=== PATIENT | female | born 1975 | race Caucasian/White ===

== ENCOUNTER 2023-03-06 19:49 | Outpatient (CLI) | payer BC, SELFPAY ==
--- OUTSIDE RECORDS SUMMARY | 2023-03-06 19:52 | XMS_ITS | Continuity of Care Document ---
Author Name Unknown Organization [facility] Address [address] [address] [place] [address] Care Team Providers Care Pit Clerk Name Role Phone [place], [place] Unavailable Unav ailable Procedures Procedure Date Colono Advance Directives Directive Yes / No Effective Date File Name No Information Encounters Encounter Description Practice Location Reason(s) For Visit Diagnoses Date Provider Providers Copied on Encounter [facility], [address] [address], [place], [place], [id number], [place] [facility] No Information [facility]. [address] [address], [place], [place], [id number], . tel:[phone] Referring Provider: Iris Oliver MD, [address] [place] [address], [address]. tel:[phone] Family History Family Member Type Diagnosis Age At Onset No Information Payers Payer name Insurance type Covered republican ID Authoriza tion(s) [employer] [place] [id number] Social History Type Description Quantity Date Captured Comments Sex Female Smoking Status No Information Chief Complaint And Reason For Visit No Information Reason For Referral Reason For Referral No Information Plan Of Treatment Date Type Action Status No Information History Of Present Illness Encounter Date Complaint History Of Prese nt Illness No Information Functional Status Date Functional Assessmen t No Information Instructions Date Instruction Additional Infor mation No Information Assessments Type Assessment Date No Information Patient Care Teams Name Effective Dates (start - stop) Status Members No Information
--- OUTSIDE RECORDS SUMMARY | 2023-03-06 19:52 | XMS_ITS | Continuity of Care Document ---
Author Name Unknown Organization [facility] Address [address] [address] [place] [address] Phone Care Team Providers Care Medical I D Sales Name Role Phone Demetria Quintanilla CRNA Unavailable Unavailab le Allergies, Adverse Reactions, Alerts Substance Reaction Status Criticality No Known Allergies Active No Inform ation Medications Medication Instructions Dosage Effective Dates (start - stop) Status Comments lisinopril 10 mg tablet take 1 tablet by oral route every day 10 MG - Active Procedures Procedure Date Level Iv-surg Path Gross/micro 22 CRS Charges Advance Directives Directive Yes / No Effective Date File Name No Information Encounters Encounter Description Practice Location Reason(s) For Visit Diagnoses Date Provider Providers Copied on Encounter [facility], [address] [address], [place], [place], [id number], [place] tel:[phone] [facility] No Information 2 Socorro Augustin . [address], [place], [place], [id number] , [place]. tel:[phone] Referring Provider: Iris Oliver MD, [address], [place], [address]. tel:[phone] [facility], [address] [address], [place], [place], [id number], [place] tel:[phone] [facility] GI Symptoms or Concerns (chief complaint) Screening ColonoscopyColorect al polypsRectal polypEncounter for screening for malignant neoplasm of colon 2 Melody Simmons. [address], [place], [address], [place]. tel: [phone] Referring Provider: Referral Self. [facility], [address] [address], [place], [id number], [place] tel:[phone] [facility] No Information 2 Melody Simmons. 1980 [facility] [address], [place], [address], [place]. tel: [phone] Family History Family Member Type Diagnosis Age At Onset Mother Problem (finding) Cancer, kidney Mother Problem (finding) Cancer, gastric Mother Problem (finding) Alcoholism Father Problem (finding) Colon polyps Immunizations Vaccine Date Status Comments tetanus toxoid, reduced diphtheria toxoid, and acellular pertussis vaccine, adsorbed administered Note: [facility] bi-direct ional interface ; Source: Other Registry Payers Payer name Insurance type Covered constitution party ID Authoriza tion(s) [facility] [place] [id number] Social History Type Description Quantity Date Captured Comments Sex Female Smoking Status No Information Chief Complaint And Reason For Visit No Information Reason For Referral Reason For Referral No Information Plan Of Treatment Date Type Action Status No Information History Of Present Illness Encounter Date Complaint History Of Prese nt Illness GI Symptoms or Concerns Functional Status Date Functional Assessmen t No Information Instructions Date Instruction Additional Infor mation Colon Cancer Prevention Related to Screening Colonoscopy Colon Polyps Related to Scree anibal Colonoscopy Assessments Type Assessment Date No Information Patient Care Teams Name Effective Dates (start - stop) Status Members No Information
--- NOTE | 2023-03-14 08:57 | W.PM.SLEEP ---
Sleep Study Details Details Interpreting Provider: Clarisse Date of Sleep Study: 03/06/23 Sleep Study Details: STUDY TYPE:? Home unattended ? BMI:? 38.3 ORDERING PROVIDER:? Clarisse INDICATION:? Concerns about sleep apnea ? SLEEP SUMMARY:? 508 minutes monitored RESPIRATORY SUMMARY:? AHI 34.4, supine 43.8, left lateral 8.8, right lateral 18.6 Low oxygen 86 0.5% of study oxygen less than 90% Snoring 75.3% PERIODIC LIMB MOVEMENTS OF SLEEP:? Not recorded during home study CARDIAC:? Range 62-111, mean 79.4 IMPRESSION:? Severe obstructive sleep apnea with supine position dependency but apnea present in all positions. RECOMMENDATION: Initiate AutoSet CPAP at a pressure of 4-17. Weight loss is also recommended.
== END 2023-03-06 19:50 | disposition home or self-care (01) ==
LOC: SLEEP 19:50
PROVIDERS: PCP Physician Assistant Medical; Visit Provider Otolaryngology
DX: G47.33 Obstructive sleep apnea (adult) (pediatric) (principal)
CPT/HCPCS: 95806

== ENCOUNTER 2023-04-27 10:30 | Outpatient (CLI) | payer BC, SELFPAY | END 2023-04-27 10:31 | disposition home or self-care (01) | LOC: LKVREF 10:31 | PROVIDERS: PCP Physician Assistant Medical; Visit Provider Physician Assistant Medical | DX: I10 Essential (primary) hypertension (principal); R20.0 Anesthesia of skin | CPT/HCPCS: 82607 ==

== ENCOUNTER 2023-09-07 08:11 | Outpatient (CLI) | payer BC, SELFPAY ==
--- OUTSIDE RECORDS SUMMARY | 2023-09-13 18:05 | XMS_ITS | Encounter Summary ---
Author Name Unknown Organization [facility] Address [address] [place] [address] Care Team Providers Care Shade Classifier Name Role Phone Yulisa Contreras PA-C Primary Care Provider [facility]- Unav ailable Reason for Visit * Reason Comments Post op check TDR L5-S1 06/08/23 Encounter Details Date Type Department Care Team (Late st Contact Info) Description 06/29/2023 9:15 AM CDT Office Visit [facility]) [address] [place] [address] Marquez Rosenthal PA-C [address] [place], [place] [phone] Lumbar spine pain (Primary Dx) Social History Tobacco Use Types Packs/Day Years Used Date Smoking Tobacco: Former Cigarettes Smokeless Tobacco: Never Tobacco Cessation:Counseling Given: Not Answered Alcohol Use Standard Drinks/Week Comments Not Currently 0 (1 standard drink = 0.6 oz pur e alcohol) Sex and Gender Information Value Date Recorded Sex Assigned at Not on file Gender Identity Not on file Sexual Orientation Not on file documented as of this encounter Last Filed Vital Signs Vital Sign Reading Time Taken Comments Blood Pressure - - Pulse - - Temperature - - Respiratory Rate - - Oxygen Saturation - - Inhaled Oxygen Concentration - - Weight 102.1 kg (225 lb) 06/29/2023 9:11 AM CDT Height 165.1 cm (5' 5) 06/29/2023 9:11 AM CDT Body Mass Index 37.44 06/29/2023 9:11 AM CDT documented in this encounter Progress Notes * Marquez Roesnthal PA-C - 06/29/2023 9:15 AM CDT DATE OF SERVICE: 06/28/23 CHIEF COMPLAINT: low back pain HISTORY OF PRESENT ILLNESS: Carolina Garrido is a 48 y.o. female here today for evaluation approximately 3 weeks status post L5-S1 Total Disc Replacement (DOS: 06/08/23) performed by Dr. Vasyl Barrera. She is doing very well postoperatively. Her symptoms continue to improve.. Overall, symptoms continue to improve, and she is happy with the results thus far. Review of Systems: I have reviewed the last complete 10 point Review of Systems with the patient and any changes in findings are listed as part of today's visit. All other systems are negative. The patient's Past Medical/Surgical/Family/Social history have been reviewed and verified with the patient. The patient's current medications have been reviewed and verified with the patient. OBJECTIVE: @VSR@ GENERAL: Patient is alert and oriented x3 and appears to be in a mild amount of discomfort. EXTREMITIES: Symmetrical without obvious deformities. NEUROLOGICAL: Motor and sensory examinations are intact without deficit in the bilateral lower extremities. Motor and sensory examinations are intact without deficit in the bilateral upper extremities. INCISION: Site is clean, dry, and intact. IMAGING: The patient did have imaging prior to this appointment which I reviewed myself and discussed the findings with her. 06/29/23- XR Lumbar Spine- [facility] The impression is: The instrumentation is in appropriate placement without any evidence of hardwarebreakdown or loosening. The interbody grafts are in good position and there is significant bone graft material throughout for fusion process. ASSESSMENT 1.3 weeks status post L5-S1 Total Disc Replacement (DOS: 06/08/23) PLAN: 1. I had a long talk with Carolina Garrido today regarding the diagnosis and treatment recommendations. We talked about activity restrictions and modifications. We also discussed medication management and wound care measures going forward. 2. Due to her current condition and response to treatment thus far, I recommend Carolina continue to increase activities as she can tolerate. Continue with her brace. We will keep her off work for least another month. She will follow up 4 weeks At the end of our visit Carolina Garrido understands the current diagnosis and future treatment plan, and questions were answered satisfactorily. I also asked if there are any other questions or concerns otherwise, that she please call back to the office; understanding of this was expressed. REMOTE TELESCRIBE ATTESTATION: ICarole am serving as a remote telescribe to document services personally performed by Marquez Rosenthal PA-C, and have constructed this note based upon discussion of the services providedand the practitioner's statements to me. I attest that through the duration of documentation services, I remained in a HIPAA compliant location. All documentation has been reviewed by the aforementioned provider. PROVIDER ATTESTATION: Marquez Zabala PA-C attest the above information is a true representation of the patient encounter. The information in this document, created by the medical telescribe for me, accurately reflects the services I personally performed and the decisions made by me. I have reviewed this document and have made the final edit(s). Authenticated by Marquez Rosenthal PA-C on 06/29/23 at 8:57 AM. 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 06/14/2023 06/14/2023 06/14/2023 2 Hydromorphone 4 Mg Tablet 27.00 5 Ja [facility] [id number] Gra (2990) 0/0 108.00 M[place] 06/10/2023 06/10/2023 06/10/2023 2 Hydromorphone 4 Mg Tablet 27.00 5 Ma [facility] [id number] Gra (6070) 0/0 108.00 [place] 05/24/2023 05/24/2023 05/26/2023 2 Oxycodone Hcl (Ir) 5 Mg Tablet 30.00 4 Sa Lyb [id number] Gra (2990)0/0 56.25 [place] 05/03/2023 04/27/2023 05/04/2023 1 Oxycodone Hcl (Ir) 5 Mg Tablet 30.00 7 Sa Lyb [id number] Wal (6514)0/0 32.14 [place] Name Address [facility] Zipcode Phone Yulisa Contreras [address] [facility] [address] Jarett Fernandez [address] [facility] [address] [facility] [address] Marquez Rosenthal [address] [facility] [address] [facility] [address] Name Address [facility] Zipcode Phone trinket [phone] [facility] [id number] [facility] [phone] [facility] [phone] As a proxy delegate, I have queried the [place] and/or [place] Prescription Monitoring Program for this patient and provided the clinician with the above information for the preceding 12 months. Monica Kaye LPN * Mikael Rivera - 06/29/2023 9:15 AM CDT Surgery - TDR L5-S1 Provider - Dr. Barrera Date - 06/08/23 Symptoms - numbness in abdomen to back to mid thigh when laying on back or left side. Images/Location - 2VL 06/29/23 - Ray[facility] Changes in health hx since last visit - none Current Pain Med's - Tylenol, Oxycodone occasionally Suture/Staple Removal - Sutures in front, provider to determine if ok to remove Pain Score - 10 Any major falls in the last year - no Did the fall(s) result in injury - no Is the patient at risk for falls - no Is a Disability or Workability Form needed - yes Current RTW date - na RT.R Sheng 06/29/2023 9:14 AM documented in this encounter Plan of Treatment Not on file documented as of this encounter Visit Diagnoses Diagnosis Lumbar spine pain- Primary Lumbago documented in this encounter Care Teams Shade Classifier Relationship Specialty Start Date End Date Yulisa Contreras PA-C [address] [place] [address] PCP - General Physician Vegetable Preparer 01/20/23 [facility]- [address] [place] [address] PCP - Primary Care Clinic 05/29/23 documented as of this encounter
--- OUTSIDE RECORDS SUMMARY | 2023-09-13 18:05 | XMS_ITS | Clinical Summary ---
Author Name Unknown Organization [facility] Address [address] [place] [address] Care Team Providers Care Software Installer Name Role Phone Yulisa Contreras PA-C Primary Care Provider [facility]- Unav ailable Allergies No known active allergies Medications Medication Sig Dispensed Refills Start Date End Date Status valACYclovir (VALTREX) 1 gram oral tablet TAKE 2 TABLETS TWICE A DAY FOR 1 DAY AT FIRST SIGN OF ONSET 0 10/20/2022 Active hydroCHLOROthiazide (HYDRODIURIL) 12.5 mg oral tablet TAKE 1 TABLET (12.5 MG) BY MOUTH DAILY 0 11/26/2021 Active melatonin 10 mg oral Tab Take 5 mg by mouth at bedtime as needed. 0 Active Walker Two Wheeled (Rolling) Walker Height: Ht Readings from Last 1 Encounters: 06/08/23 : 5' 5 (1.651 m) Weight:Wt Readings from Last 1 Encounters: 06/08/23 : 114.6 kg (252 lb 10.4 oz) 1 each 0 06/10/2023 Active methocarbamoL (ROBAXIN) 750 mg oral tablet Take 1-2 tablets (750-1,500 mg) by mouth every 6 (six) hours as needed (muscle spasms). 60 tablet 0 06/10/2023 Active HYDROmorphone (DILAUDID) 4 mg oral tablet 1-1.5 (4-6mg) tabs every 4 hrs prn max 9/day 27 tablet 0 06/14/2023 Active lisinopriL-hydrochlo rothiazide 10-12.5 mg oral tablet Take 1 tablet by mouth once daily. for blood pressure 0 06/10/2023 Active methylPREDNISolone (MEDROL DOSPAK) 4 mg oral dospak 0 04/27/2023 Active oxyCODONE, immediate release, (ROXICODONE) 5 mg oral tablet TAKE 1-2 TABLETS BY MOUTH EVERY 6 HOURS NEEDED FOR SEVERE PAIN 0 05/24/2023 Active Active Problems Problem Noted Date Diagnosed Date Lumbar radiculopathy 06/08/2023 Sacroiliitis 06/08/2023 Primary hypertension 06/08/2023 Basal cell carcinoma, eyelid, right 07/22/2021 Overview: Added automatically from request for surgery [id number] (spontaneous vaginal delivery) 09/27/2011 Encounters Date Type Department Care Team Description 08/07/2023 Order-Scan [facility] [address] [place] [phone] Reported, Patient 08/04/2023 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 OCEANOLOGY TEACHER Office Visit [facility] ([facility]) [address] [facility] [address] [place] [phone] Vincent Michel PA-C Postoperative state (Primary Dx) 08/04/2023 Travel 06/29/2023 9:15 AM CDT Office Visit [facility] ([facility]) [address] [place] [phone] Marquez Rosenthal PA-C Lumbar spine pain (Primary Dx) 06/29/2023 Order-Scan [facility] [address] [place] [phone] Reported, Patient 06/29/2023 Travel from Last 3 Months Family History Relation Status Comments Father Mother Social History Tobacco Use Types Packs/Day Years Used Date Smoking Tobacco: Former Cigarettes Smokeless Tobacco: Never Tobacco Cessation:Counseling Given: Not Answered Alcohol Use Standard Drinks/Week Comments Not Currently 0 (1 standard drink = 0.6 oz pur e alcohol) Sex and Gender Information Value Date Recorded Sex Assigned at Not on file Gender Identity Not on file Sexual Orientation Not on file Last Filed Vital Signs Vital Sign Reading Time Taken Comments Blood Pressure 127/75 06/10/2023 12:08 PM CDT Pulse 95 06/10/2023 12:08 PM CDT Temperature 36.6 ??C (97.9 ??F) 06/10/2023 12:08 PM C DT Respiratory Rate 16 06/10/2023 12:08 PM CDT Oxygen Saturation 96% 06/10/2023 12:08 PM CDT Inhaled Oxygen Concentration - - Weight 102.1 kg (225 lb) 06/29/2023 9:11 AM CDT Height 165.1 cm (5' 5) 06/29/2023 9:11 AM CDT Body Mass Index 37.44 06/29/2023 9:11 AM CDT Plan of Treatment Health Maintenance Due Date Last Done Comments Hepatitis C Screening 1977 Lipid Screening 1977 Mammogram Screening 1977 Pap Smear 1977 COVID-19 Vaccine (#1) 1977 Anxiety Screening (OPAL-2) 1978 Depression Assessment (PHQ-2) 1978 Influenza Vaccine (#1) 2023 Diabetes Screening 06/09/2026 06/09/2023 Adult Tetanus Booster 03/21/2029 03/21/2019 Colonoscopy 08/05/2032 08/05/2022 Pneumococcal <65 Aged Out No longer e ligible based on patient's age to complete this topic Medical Devices Implanted Type Area Supervisor Putty [employer] [place] Device Identifier Shelf Expiration Date Model / Serial / Lot Activ L Pe-Inlay 8.5mm Implanted:Qty: 1 on 06/08/2023 by Vasyl Barrera MD at [facility] N/A: Spine Lumbar [employer] 06/28/2026 [id number] / / [id number] Procedures Procedure Name Priority Date/Time Associated Diagnosis Comments SCANNED RADIOLOGY Routine 08/04/2023 9:19 AM OCEANOLOGY TEACHER SCANNED RADIOLOGY Routine 06/29/2023 11:36 AM CDT from Last 3 Months Results * SCANNED RADIOLOGY (08/04/2023 9:19 AM OCEANOLOGY TEACHER) Only the most recent of2 resultswithin the time period is included. Anatomical Region Laterality Modality Other Patient Reported XRAY ORDERABLE from Last 3 Months Advance Directives For more information, please contact: [phone] Latest Code Status on File Code Status Date Activated Date Inactivated Comments Full Code 06/08/2023 12:45 PM 06/10/2023 6:13 PM Question Answer Comments How was code status determined? Patient Code Status History Code Status Date Activated Date Inactivated Comments Full Code 06/08/2023 5:36 AM 06/08/2023 10:04 AM Question Answer Comments How was code status determined? Previous [facility] Care Teams Software Installer Relationship Specialty Start Date End Date Yulisa Contreras PA-C [address] [place] [address] PCP - General Physician It Consulting Director 01/20/23 [facility] [address] [place] [address] PCP - Primary Care Clinic 05/29/23
--- OUTSIDE RECORDS SUMMARY | 2023-09-13 18:05 | XMS_ITS | Encounter Summary ---
Author Name Unknown Organization [facility] Address [address] [place] [address] Care Team Providers Care Outreach Representative Name Role Phone Yulisa Contreras PA-C Primary Care Provider [facility]- Unav ailable Reason for Referral * (Routine) - Open Specialty Diagnoses / Procedures Referred By Contac t Referred To Contact Diagnoses Lumbar radiculopathy Procedures Discharge Equipment: Jarett Muñoz PA-C [address] [place] [address] Referral ID Status Reason Start Date Expiration Date Visits Re quested Visits Authorized [id number] Open 06/10/2023 1 1 * (Routine) - Open Specialty Diagnoses / Procedures Referred By Contac t Referred To Contact Procedures Diet: Level 7 Regular Jarett Fernandez PA-C [address] [place] [address] Referral ID Status Reason Start Date Expiration Date Visits Re quested Visits Authorized [id number] Open 06/10/2023 1 1 * (Routine) - Open Specialty Diagnoses / Procedures Referred By Contac t Referred To Contact Procedures Wound care Jarett Fernandez PA-C [address] [place] [address] Referral ID Status Reason Start Date Expiration Date Visits Re quested Visits Authorized [id number] Open 06/10/2023 1 1 * (Routine) - Open Specialty Diagnoses / Procedures Referred By Contac t Referred To Contact Procedures Discharge Instructions Jarett Fernandez PA-C [address] [place] [address] Referral ID Status Reason Start Date Expiration Date Visits Re quested Visits Authorized [id number] Open 06/10/2023 1 1 * (Routine) - Open Specialty Diagnoses / Procedures Referred By Contac t Referred To Contact Jarett Fernandez PA-C [address] [place] [address] Vasyl Barrera MD [address] [place] [address] Referral ID Status Reason Start Date Expiration Date Visits Re quested Visits Authorized [id number] Open 06/10/2023 1 1 Question Answer Specify time frame for follow up? 2 Weeks Instructions to follow-up provider none Comments Return to clinic in 2 days for staple removal * (Routine) - Open Specialty Diagnoses / Procedures Referred By Contac t Referred To Contact Procedures Temperature >101 (38.3 degrees Celsius) Jaertt Fernandez PA-C [address] [place] [address] Referral ID Status Reason Start Date Expiration Date Visits Re quested Visits Authorized [id number] Open 06/10/2023 1 1 * (Routine) - Open Specialty Diagnoses / Procedures Referred By Contac t Referred To Contact Procedures Severe uncontrolled pain Jarett Fernandez PA-C [address] [place] [address] Referral ID Status Reason Start Date Expiration Date Visits Re quested Visits Authorized [id number] Open 06/10/2023 1 1 * (Routine) - Open Specialty Diagnoses / Procedures Referred By Contac t Referred To Contact Procedures Persistent nausea or vomiting Jarett Fernandez PA-C [address] [place] [address] Referral ID Status Reason Start Date Expiration Date Visits Re quested Visits Authorized [id number] Open 06/10/2023 1 1 * (Routine) - Open Specialty Diagnoses / Procedures Referred By Contac t Referred To Contact Procedures Pain not relieved by medication Jarett Fernandez PA-C [address] [place] [address] Referral ID Status Reason Start Date Expiration Date Visits Re quested Visits Authorized [id number] Open 06/10/2023 1 1 * (Routine) - Open Specialty Diagnoses / Procedures Referred By Contac t Referred To Contact Procedures Any questions or concerns Jarett Fernandez PA-C [address] [place] [address] Referral ID Status Reason Start Date Expiration Date Visits Re quested Visits Authorized [id number] Open 06/10/2023 1 1 * (Routine) - Open Specialty Diagnoses / Procedures Referred By Contac t Referred To Contact Procedures Wound care Orville Vickers MD [address] [place] [address] Referral ID Status Reason Start Date Expiration Date Visits Re quested Visits Authorized [id number] Open 06/09/2023 1 1 * (Routine) - Open Specialty Diagnoses / Procedures Referred By Contac [place] [address] [place] [address] Yulisa Contreras PA-C [address] [place] [address] Referral ID Status Reason Start Date Expiration Date Visits Re quested Visits Authorized [id number] Open 06/09/2023 1 1 Question Answer Specify time frame for follow up? 1 Week Instructions to follow-up provider See comments. Comments Posthospital follow-up for L5-S1 interbody fusion. Patient follow with surgery as an outpatient. 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] Procedures LUMBAR SPINE FUSION,ANTER NEIL* NC TOTAL DISC ARTHRP ANT SINGLE INTERSPACE LUMBAR ARTIFICIAL DISC REPLACEMENT L5-S1 EXPOSURE: LUMBAR Referral ID Status Reason Start Date Expiration Date Visits Re quested Visits Authorized [id number] 1 1 Encounter Details Date Type Department Care Team (Latest Contact Info) Description 06/08/2023 5:29 AM CDT - 06/10/2023 11:30 AM CDT Hospital Encounter A7 [address] [facility] [address] Vasyl Barrera MD [address] [facility] [address] [place] [address] Lumbar radiculopathy Discharge Disposition: Returning Home/Self Care Social History Tobacco Use Types Packs/Day Years Used Date Smoking Tobacco: Never Smokeless Tobacco: Never Alcohol Use Standard Drinks/Week Comments Not Currently 0 (1 standard drink = 0.6 oz pur e alcohol) Sex and Gender Information Value Date Recorded Sex Assigned at Not on file Gender Identity Not on file Sexual Orientation Not on file documented as of this encounter Last Filed Vital Signs Vital Sign Reading Time Taken Comments Blood Pressure 127/75 06/10/2023 11:00 AM CDT Pulse 95 06/10/2023 11:00 AM CDT Temperature 36.6 ??C (97.9 ??F) 06/10/2023 1 0:44 AM CDT Respiratory Rate 16 06/10/2023 10:4 4 AM CDT Oxygen Saturation 96% 06/10/2023 10: 44 AM CDT Inhaled Oxygen Concentration - - Weight 114.6 kg (252 lb 10.4 oz) 2022 11:31 AM CDT Height 165.1 cm (5' 5) 06/08/2023 11:3 1 AM CDT Body Mass Index 42.04 06/08/2023 11:31 AM CDT documented in this encounter Discharge Summaries * Jarett Fernandez PA-C - 06/10/2023 9:22 AM CDT HOSPITAL DISCHARGE SUMMARY Patient Name: Carolina Garrido Date of : 1975? Age: 48 y.o.? ? Primary Physician: Yulisa Contreras PA-C? ? Admission Date: 06/08/2023? Discharge Date: 06/10/2022 She will be discharged from [facility] to home. PRINCIPAL DIAGNOSIS CAUSING ADMISSION: Displacement of lumbar intervertebral disc without myelopathy [M51.26]? DISCHARGE MEDICATIONS Please call [phone] with any insurance coverage issues, including limited days' supply rejections. FOLLOW-UP: She should return to clinic in 2 weeks or as scheduled. Additional followup: None Special instructions: No lifting over 10 pounds. Limit bending and twisting. Dressing off tomorrow.Ok to shower tomorrow. Pat incision dry when done. Brace: If given a brace it is to be worn at all times when out of bed. Brace can be removed when laying in bed and for hygiene purposes. BRIEF HOSPITAL COURSE: This 48 y.o.? female was [facility] Procedure(s): ARTIFICIAL DISC REPLACEMENT L5-S1 - Wound Class: Clean (I) - Incision Closure: Deep and SuperficialLayers Bilateral - EXPOSURE: LUMBAR - Wound Class: Clean (I) - Incision Closure: Deep and Superficial Layers. The patient had a stable post operative course. Standard prophylactic antibiotics were administerd and the patient received DVT prophylaxis per service protocol. The patient's pain was initially controlled on intravenous pain medications and then weaned to oral medications prior to discharge. The patients pain was well controlled and the patient had met all physical therapy goals prior to discharge. PROCEDURES PERFORMED DURING HOSPITALIZATION: Procedure(s): ARTIFICIAL DISC REPLACEMENT L5-S1 - Wound Class: Clean (I) - Incision Closure: Deep and SuperficialLayers Bilateral - EXPOSURE: LUMBAR - Wound Class: Clean (I) - Incision Closure: Deep and Superficial Layers on 06/08/2023 COMPLICATIONS IN HOSPITAL: None IMPORTANT PENDING TEST RESULTS: None PERTINENT FINDINGS/RESULTS AT DISCHARGE: None DISCHARGE DIAGNOSES: Lumbar radiculopathy Jarett Fernandez PA-C 9:23 AM [facility] Office: [phone] documented in this encounter Medications at Time of Discharge Medication Sig Dispensed Refills Start Date End Date hydroCHLOROthiazide (HYDRODIURIL) 12.5 mg oral tablet TAKE 1 TABLET (12.5 MG) BY MOUTH DAILY 0 11/26/2021 lisinopriL-hydrochloroth iazide 10-12.5 mg oral tablet Take 1 tablet by mouth once daily. for blood pressure 0 06/10/2023 melatonin 10 mg oral Tab Take 5 mg by mouth at bedtime as needed. 0 methocarbamoL (ROBAXIN) 750 mg oral tablet Take 1-2 tablets (750-1,500 mg) by mouth every 6 (six) hours as needed (muscle spasms). 60 tablet 0 06/10/2023 methylPREDNISolone (MEDROL DOSPAK) 4 mg oral dospak 0 04/27/2023 oxyCODONE, immediate release, (ROXICODONE) 5 mg oral tablet TAKE 1-2 TABLETS BY MOUTH EVERY 6 HOURS NEEDED FOR SEVERE PAIN 0 05/24/2023 valACYclovir (VALTREX) 1 gram oral tablet TAKE 2 TABLETS TWICE A DAY FOR 1 DAY AT FIRST SIGN OF ONSET 0 10/20/2022 Walker Two Wheeled (Rolling) Walker Height: Ht Readings from Last 1 Encounters: 06/08/23 : 5' 5 (1.651 m) Weight:Wt Readings from Last 1 Encounters: 06/08/23 : 114.6 kg (252 lb 10.4 oz) 1 each 0 06/10/2023 documented as of this encounter Progress Notes * Roselia Barber RN - 06/10/2023 12:06 PM CDT Carolina Riveravaneusebio [id number] P: Discharge A: Discharged via wheelchair to home at 1130 escorted by nurse I: Discharge information and arrangements included: review of written discharge instructions, review of purpose and side effects of new medication, walker sent with the patient/family., belongings list completed. R:Patient expressed understanding of information. present for D/C. VSS. Prescriptions filled at outside pharmacy. All belongings returned. * Jarett Fernandez PA-C - 06/10/2023 9:14 AM CDT [facility] progress Note S: Patient is feeling much better this morning. She notes she is gotten very good pain control overnight. She is not noting any nausea, vomiting or headaches. She does admit to flatus. She has not had a bowel movement yet. She is urinating without a Gonzalez catheter. She denies any lower extremity pain or paresthesias. She is hoping to discharge home today. O: BP 117/62 Pulse 94 Temp 98.2 ??F (36.8 ??C) Resp 18 Ht 5' 5 (1.651 m) Wt 114.6 kg (252 lb 10.4 oz) LMP 06/06/2023 (Exact Date) SpO2 95% No BMI 42.04 kg/m?? Alert and oriented x3. Moves all extremities x4. Motor and sensory examinations are intact without deficit to the bilateral lower extremities. Dressing shows mild serosanguineous drainage. Abdomen issoft and nontender to palpation. A: Status post L5-S1 TDR P: Patient is doing much better this morning. I discontinued IV pain medications and she will be upand work with therapies this morning. Assuming good pain control she should discharge midday today. Jarett Fernandez PA-C 06/10/2023, 9:14 AM * Luis M Roa MD - 06/10/2023 7:41 AM CDT Images from the original note were not included. HOSPITALIST DIVISION PROGRESS NOTE CHIEF COMPLAINT: Planned artificial disc replacement at L5-S1 and L5-S1 interbody fusion SUBJECTIVE - No acute overnight events - Eating well and improved pain control - Slept betting - Denies any fevers, chills, CP, SOB, N/V, dizziness, or confusion - updated at bedside OBJECTIVE BP 127/75 Pulse 95 Temp 97.9 ??F (36.6 ??C) Resp 16 Ht 5' 5 (1.651 m) Wt 114.6 kg (252 lb 10.4 oz) LMP 06/06/2023 (Exact Date) SpO2 96% No BMI 42.04 kg/m?? Intake/Output Summary (Last 24 hours) at 06/10/2023 1220 Last data filed at 06/10/2023 1045 Gross per 24 hour Intake 480 ml Output 0 ml Net 480 ml GENERAL APPEARANCE: She is awake, alert and in no acute distress. HEENT: Head - Normocephalic, atraumatic. Eyes - Normal lids and conjuntivae, PERRLA, EOMs intact. Oropharynx - Oral mucosa and pharynx normal, moist mucous membranes. NECK: Supple with no adenopathy. RESPIRATORY: Lungs clear to auscultation bilaterally. CARDIOVASCULAR: Normal S1, normal S2, regular rhythm, without murmur. GASTROINTESTINAL: Midline surgical dressing in place over the abdomen, clean and dry. Normal bowel sounds. HEME/LYMPH/IMMUNOLOGIC: No palpable lymphadenopathy, no unusual bleeding or bruising. SKIN: Intact, warm, dry. No rashes or lesions. No mottling. NEUROLOGIC: Alert and oriented, moves all extremities. Normal movement and sensation in the bilateral lower extremities. EXTREMITIES: Distal Pulses are palpable, no edema. No results found for this or any previous visit (from the past 24 hour(s)). Additional comments: I reviewed the patient's new clinical lab test results. I reviewed the patient's medications. I reviewed the patient's other test results. ASSESSMENT Principal Problem: Lumbar radiculopathy Active Problems: Sacroiliitis (HCC) Primary hypertension Surgical Incision Midline;Lower Abdomen (Active) Incision Date/Incision Time: 06/08/2306 Type: Incision Orientation: Midline;Lower Location: Abdomen Comments: This is a 48-year-old woman with a past medical history significant for lumbar radiculopathy who was admitted for planned L5-S1 artificial disc replacement and L5-S1 interbody fusion. PLAN Lumbar radiculopathy s/p L5-S1 artificial disc replacement and interbody fusion The patient is a history of lumbar radiculopathy that failed conservative management and after discussion with surgical teams, agreed to L5-S1 artificial disc replacement and interbody fusion. L5-S1 artificial disc replacement and interbody fusion was completed without complication. 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 Plan: - Continue to hold home hydrochlorothiazide in the setting of normal blood pressure - As needed IV hydralazine for sustained SBP >180 CAMILA CPAP has been prescribed to the patient patient but she has not yet started using it. CPAP was offered during this admission with the patient declined. Plan: - Continue to monitor Insomnia INVENTORY ASSOCIATE AND DRIVER melatonin. Plan: - Continue home melatonin CODE STATUS: Full Code DVT prophylaxis: Per primary team GI prophylaxis: None Dermatology Nurse Type Used: None DISPOSITION: Anticipated date of discharge per primary team, possibly today (06/10). Luis M Roa MD * Diana Beasley RN - 06/10/2023 4:05 AM CDT Med-Surg Care Progression Note Type: Shift to shift summary Length of stay: 2 days Code Status: Full Code Primary Problem: POD#2 L5-S1 Artificial dis replacement Summary: Difficult pain management at the start of shift despite use of PO Dilaudid. Neurosurgery paged and added PRN IV Toradol, increased PO Dilaudid 2- 6mg, and modified PRN IV Dilaudid admin orders. PRN IV Dilaudid 0.5mg given x1. Gave the pt abdominal binder for while in bed for comfort and support, pt reports significant decrease in incisional/abdominal pain with use of binder. F- Feeding & Fluids: Tolerating regular diet, thin liquids A- Analgesic & Anticoagulation: Comfort Goal: Numeric, Verbal, Faces: 0 - None Analgesic PO Dilaudid 6mg, Tylenol, Robaxin, Vistaril, Ice packs and using abdominal binder while in bed for comfort. Anticoagulation/DVT prevention & plan SCDs S- Skin: Elmer Subcategory Concern(s): Sensory Perception: Slightly Limited (Numbness/tingling bilateral extremities) Sensory Interventions: Pain control Moisture: Rarely Moist Activity: Walks Occasionally Activity Interventions: Reposition every 2 hours Nutrition: Adequate Nutrition Interventions: Calorie intake Mobility: Slightly Limited Mobility Interventions: Turning every 2 hrs Friction and Shear: No Apparent Problem Total Elmer Score: 19: Aquacel dressing on abdomen CDI. No other skin concerns. Frequently changing positions in bed and up to chair. T- Telemetry: Rhythm: Sinus Rhythm Ectopy: None No tele E- Emotional & Neuro: Participating in cares Neuro Alert and Oriented R- Respiratory: On room air H- Head OUT of Bed & Activity: Activate Fall Alert? (Enter 1 or 0): (not recorded) Ambulating Ax1/SBA with walker. Therapies following Early mobility Phases 1-4: Phase 4: Ambulation U- Urologic/bowel: No data recorded Voiding WNL in bathroom, passing gas but no BM yet. G- Glycemic Control: Not applicable T- Treatment: Pain control, Mobility, PT/OT I- Invasive Devices: PIV x1 D- Discharge: Possibly home today with family support if pain managed * Laura Sifuentes RN - 06/09/2023 10:36 PM CDT Med-Surg Care Progression Note Type: Shift to shift summary [id number] Length of stay: 1 days Code Status: Full Code Primary Problem: Disc Replacement L5- S 1 Summary: Pt did not discharge today - working on pain control, switched oxy to PO dilaudid F- Feeding & Fluids: Tolerating regular diet / thin liquids A- Analgesic & Anticoagulation: Comfort Goal: Numeric, Verbal, Faces: 0 - None Analgesic Sched Tylenol & Robaxin, changed oxy to dilaudid to try for better pain control. PRN vistaril. Ice packs applied. Anticoagulation/DVT prevention & plan SCDs S- Skin: Elmer Subcategory Concern(s): Sensory Perception: No Impairment Moisture: Rarely Moist Activity: Chairfast Activity Interventions: Reposition every 2 hours Nutrition: Adequate Nutrition Interventions: Calorie intake Mobility: Slightly Limited Mobility Interventions: Turning every 2 hrs Friction and Shear: No Apparent Problem Total Elmer Score: 19: Aquacel C/D/I T- Telemetry: Rhythm: Sinus Rhythm Ectopy: None No tele E- Emotional & Neuro: Participating in cares Neuro Alert and Oriented R- Respiratory: On room air, Per RT pt declined CPAP H- Head OUT of Bed & Activity: Activate Fall Alert? (Enter 1 or 0): (not recorded) A1/SBA with walker and brace. Progressive mobility Phases 5-7: (Ambulation) U- Urologic/bowel: No data recorded Voiding - WNL, states she is passing gas no BM this shift. G- Glycemic Control: Not applicable T- Treatment: pain management, PT /OT, labs I- Invasive Devices: PIV X 1 D- Discharge: TBD - home tomorrow * Roselia Barber RN - 06/09/2023 3:19 PM CDT Med-Surg Care Progression Note Type: Shift to shift summary [id number] Length of stay: 1 days Code Status: Full Code Primary Problem: Disc Replacement L5- S 1 Summary: Pt did not discharge today - working on pain control, switched oxy to PO dilaudid F- Feeding & Fluids: Tolerating regular diet / thin liquids A- Analgesic & Anticoagulation: Comfort Goal: Numeric, Verbal, Faces: 0 - None Analgesic Sched Tylenol & Robaxin, changed oxy to dilaudid to try for better pain control. Anticoagulation/DVT prevention & plan SCDs S- Skin: Elmer Subcategory Concern(s): Sensory Perception: No Impairment Moisture: Rarely Moist Activity: Chairfast Activity Interventions: Reposition every 2 hours Nutrition: Adequate Nutrition Interventions: Calorie intake Mobility: Slightly Limited Mobility Interventions: Turning every 2 hrs Friction and Shear: No Apparent Problem Total Elmer Score: 19: Aquacel C/D/ I T- Telemetry: Rhythm: Sinus Rhythm Ectopy: None No tele E- Emotional & Neuro: Participating in cares Neuro Alert and Oriented R- Respiratory: On room air, Per RT pt declined CPAP H- Head OUT of Bed & Activity: Activate Fall Alert? (Enter 1 or 0): (not recorded) Ax1 with walker and brace.Progressive mobility Phases 5-7: (Ambulation) U- Urologic/bowel: No data recorded VWNL, states she is passing gas no BM this shift. G- Glycemic Control: Not applicable T- Treatment: pain management, PT /OT, labs I- Invasive Devices: PIV X 2, Gonzalez D- Discharge: TBD- home tomorrow * Ashlee Felipe - 06/09/2023 11:48 AM CDT [facility] Rx: Marquez Rosenthal PA-C/LSO Dx: Displacement of lumbar intervertebral disc without myelopathy [M51.26] Procedure(s), Vasyl Barrera MD: ARTIFICIAL DISC REPLACEMENT L5-S1 POD#1 Pt was seen in her [facility] room A787-01 this AM for f/u of her [place] LSO, which was fit immediate post-op 06/08. This AM pt presents in room chair w/LSO on & appearing tight. Pt reporting discomfort over anterior incision. This AM I increased the LSO 1 size to alleviate pressure over incision & ease donning. Pt reported drastic improvement in comfort w/LSO adjusted. We then discussed function, wear (per Dr. Barrera), care, maintenance & precautions. This same info was provided in written format, along w/contact info. Practiced don/doff. All questions answered. Pt aware to voice any concerns w/LSO to care team during hospital stay- [place] to address. Pt alsounderstands to contact [facility] directly w/any questions or concerns after d/c from [facility]. Will continue to follow peripherally until d/c. Please call our office w/any questions or concerns in the mean time. Thank you! Ashlee Felipe [employer] * Mai Watson, ELENI - 06/09/2023 10:00 AM CDT [facility] POD #1 - Anterior spine exposure for Lumbar 5-Sacral 1 interbody fusion (EBL 50) Dr. Vickers / Dr. Barrera - 06/08/2023 BP 122/61 Pulse 93 Temp 97.5 ??F (36.4 ??C) Resp 16 Ht 5' 5 (1.651 m) Wt 114.6 kg (252 lb 10.4 oz) LMP 06/06/2023 (Exact Date) SpO2 97% No BMI 42.04 kg/m?? Intake/Output Summary (Last 24 hours) at 06/09/2023 1041 Last data filed at 06/09/2023 0850 Gross per 24 hour Intake 580 ml Output 2875 ml Net -2295 ml Labs: Latest Reference Range & Units 06/09/23 07:29 06/09/23 07:30 WBC 4.3 - 10.8 K/uL 10.4 RBC 4.20 - 5.40 M/uL 3.89 (L) HEMOGLOBIN 12.0 - 16.0 gm/dL 11.6 (L) PLATELET COUNT 150 - 400 K/UL 266 SODIUM 136 - 145 mmol/L 142 POTASSIUM 3.4 - 5.1 mmol/L 3.8 CHLORIDE 98 - 108 mmol/L 107 CARBON DIOXIDE 20 - 31 mmol/L 29 ANION GAP 0.0 - 15.0 mmol/L 6.0 GLUCOSE 74 - 106 mg/dL 103 BUN (UREA NITRO) 9 - 23 mg/dL 8 (L) CREATININE 0.55 - 1.02 mg/dL 0.59 EST GFR (CKD-EPI) >60.00 mL/min/1.73m2 >60.00 CALCIUM, SERUM 8.7 - 10.4 mg/dL 8.9 MAGNESIUM 1.6 - 2.6 mg/dL 1.9 Patient seen in room with at beside. She is alert and oriented x 3. Pain is manageable withTylenol, vistaril, oxycodone and robaxin. Abdominal incision with Aquacel dressing present and is clean, dry and intact. Site is soft, flat and without palpable hematoma. She has + bowel sounds, + flatus, negative BM. Tolerating PO intake without nausea. + CMS to BLE. Palpable DP/PT pulses. Updated Dr. Vickers. Plan: - Dispo per Neurosurg and [facility] Lexii Watson RN Nurse Clinician [facility] Pager [phone] Main Radiology [phone] Available Monday - Monday 8am to 5pm * Olya Cisneros PA-C - 06/09/2023 8:41 AM CDT NEUROSURGERY PROGRESS NOTE ASSESSMENT & PLAN: POD#1 Status Post: Procedure(s): ARTIFICIAL DISC REPLACEMENT L5-S1 (N/A) EXPOSURE: LUMBAR (Bilateral) (DOS: 06/08/23) -Pain management: Oxycodone and Tylenol -Gonzalez: can be pulled this AM -IS 3-4 times per hour while awake. -Activity w/ OT/PT. -Encourage getting out of bed to chair at least 3-4x per day -Brace: lumbar sacral brace, to wear when OOB. Ok to remove for hygiene purposes and wound cares. -Diet: May advance diet as bowel function improves. -DC planning: Length of stay: 1-2 days. Discharge on: 06/09/23 or 06/10/23 pending pain control and patient comfort. -Disposition: home with . SUBJECTIVE: Carolina Garrido is a 48 year old female who is POD1 from the above stated procedure. Patientstates her pain has not been well controlled as she feels she has built a tolerance to oxycodone asshe's been taking it daily for months. Discussed changing pain med vs optimizing adjunctive medications. Patient in favor of optimizing adjuncts. Patient endorses ongoing numbness/tingling in hip region that she had preoperatively, states it is unchanged. Patient was up and walking last night, stating she felt steady on her feet. Discussed patient concerns and answered all questions. Patient and both deny any further questions at this time. Discussed we will try for better pain control before discharge. Ambulation is going well, will see PT later today. + flatus, no BM yet. Denies new extremity pain or weakness, nausea/vomiting, abdominal pain. Discussed the case with RN on the floor. Went over the plan for the day and the rest of the patient's admission. Very much appreciate the collaboration. Diet: Level 7 Regular Level 0: Thin Liquids OBJECTIVE: Vitals: 06/08/23 1700 06/08/23 1800 06/09/23 0011 06/09/23 0413 BP: 120/69 112/66 105/60 (!) 117/59 Pulse: 89 85 81 82 Resp: 18 18 Temp: 98 ??F (36.7 ??C) SpO2: 99% 97% 94% 99% Weight: Height: Body mass index is 42.04 kg/m??. BP Readings from Last 5 Encounters: 06/09/23 (!) 117/59 Wt Readings from Last 5 Encounters: 06/08/23 114.6 kg (252 lb 10.4 oz) 01/23/23 103 kg (227 lb) Hgb: HEMOGLOBIN Date Value Ref Range Status 06/09/2023 11.6 (L) 12.0 - 16.0 gm/dL Final 06/08/2023 12.8 12.0 - 16.0 gm/dL Final Patient is awake, alert and oriented x3. Motor of bilateral LE: 5/5 strength plantar flexion, dorsiflexion, knee flexion, knee extension, hip flexion Sensory of bilateral LE: Normal sensation to light touch. Pulses: Dorsal pedal pulses 2+ bilaterally. Wound is dry and dressed. Olya Betancourt PA-C .................... 06/09/2023 8:41 AM * Luis M Roa MD - 06/09/2023 8:05 AM CDT Images from the original note were not included. HOSPITALIST DIVISION PROGRESS NOTE CHIEF COMPLAINT: Planned artificial disc replacement at L5-S1 and L5-S1 interbody fusion SUBJECTIVE - Some issues with pain overnight, did not sleep well - Pain improved now this AM, rates it as 3-4 in intensity - No issues with PO intake - Some numbness in her hip area when lying down that has since resolved - Passing gas, no BM yet - Denies any fevers, chills, CP, SOB, N/V, dizziness, or confusion OBJECTIVE BP 122/61 Pulse 93 Temp 97.5 ??F (36.4 ??C) Resp 16 Ht 5' 5 (1.651 m) Wt 114.6 kg (252 lb 10.4 oz) LMP 06/06/2023 (Exact Date) SpO2 97% No BMI 42.04 kg/m?? Intake/Output Summary (Last 24 hours) at 06/09/2023 0953 Last data filed at 06/09/2023 0850 Gross per 24 hour Intake 680 ml Output 2875 ml Net -2195 ml GENERAL APPEARANCE: She is awake, alert and in no acute distress. HEENT: Head - Normocephalic, atraumatic. Eyes - Normal lids and conjuntivae, PERRLA, EOMs intact. Oropharynx - Oral mucosa and pharynx normal, moist mucous membranes. NECK: Supple with no adenopathy. RESPIRATORY: Lungs clear to auscultation bilaterally. CARDIOVASCULAR: Normal S1, normal S2, regular rhythm, without murmur. GASTROINTESTINAL: Midline surgical dressing in place over the abdomen, clean and dry. Normal bowel sounds. HEME/LYMPH/IMMUNOLOGIC: No palpable lymphadenopathy, no unusual bleeding or bruising. SKIN: Intact, warm, dry. No rashes or lesions. No mottling. NEUROLOGIC: Alert and oriented, moves all extremities. Normal movement and sensation in the bilateral lower extremities. EXTREMITIES: Distal Pulses are palpable, no edema. Results for orders placed or performed during the hospital encounter of 06/08/23 (from the past 24 hour(s)) Hemoglobin Result Value Ref Range HEMOGLOBIN 12.8 12.0 - 16.0 gm/dL Basic Metabolic Profile Magnesium Result Value Ref Range SODIUM 142 136 - 145 mmol/L POTASSIUM 3.8 3.4 - 5.1 mmol/L CHLORIDE 107 98 - 108 mmol/L CARBON DIOXIDE 29 20 - 31 mmol/L BUN (UREA NITRO) 8 (L) 9 - 23 mg/dL CREATININE 0.59 0.55 - 1.02 mg/dL EST GFR (CKD-EPI) >60.00 >60.00 mL/min/1.73m2 GLUCOSE 103 74 - 106 mg/dL CALCIUM, SERUM 8.9 8.7 - 10.4 mg/dL ANION GAP 6.0 0.0 - 15.0 mmol/L Magnesium 1.9 1.6 - 2.6 mg/dL CBC (Hgb,Hct,WBC,RBC,Platelet) Result Value Ref Range WBC 10.4 4.3 - 10.8 K/uL RBC 3.89 (L) 4.20 - 5.40 M/uL HEMOGLOBIN 11.6 (L) 12.0 - 16.0 gm/dL HEMATOCRIT 34.9 (L) 36.0 - 48.0 % MCV 90 80 - 100 fL MCH 30 27 - 33 pg MCHC 33 33 - 36 gm/dL RDW 12.2 11.5 - 14.5 % PLATELET COUNT 266 150 - 400 K/UL MPV 9.9 6.5 - 12 fL Additional comments: I reviewed the patient's new clinical lab test results. I reviewed the patient's medications. I reviewed the patient's other test results. ASSESSMENT Principal Problem: Lumbar radiculopathy Active Problems: Sacroiliitis (HCC) Primary hypertension Surgical Incision Midline;Lower Abdomen (Active) Incision Date/Incision Time: 06/08/23805 Type: Incision Orientation: Midline;Lower Location: Abdomen Comments: This is a 48-year-old woman with a past medical history significant for lumbar radiculopathy who was admitted for planned L5-S1 artificial disc replacement and L5-S1 interbody fusion. PLAN Lumbar radiculopathy s/p L5-S1 artificial disc replacement and interbody fusion The patient is a history of lumbar radiculopathy that failed conservative management and after discussion with surgical teams, agreed to L5-S1 artificial disc replacement and interbody fusion. L5-S1 artificial disc replacement and interbody fusion was completed without complication. 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 Plan: - Continue to hold home hydrochlorothiazide in the setting of normal blood pressure - As needed IV hydralazine for sustained SBP >180 CAMILA CPAP has been prescribed to the patient patient but she has not yet started using it. CPAP was offered during this admission with the patient declined. Plan: - Continue to monitor Insomnia INVENTORY ASSOCIATE AND DRIVER melatonin. Plan: - Continue home melatonin CODE STATUS: Full Code DVT prophylaxis: Per primary team GI prophylaxis: None Dermatology Nurse Type Used: None DISPOSITION: Anticipated date of discharge per primary team. Luis M Roa MD * Dawn Nieves RN - 06/09/2023 6:07 AM CDT Med-Surg Care Progression Note Type: Shift to shift summary Length of stay: 1 days Code Status: Full Code Primary Problem: Disc Replacement L5- S 1 Summary: pt stable, pt ambulates with brace and walker, PRN given x1 this shift. Family in room with pt. F- Feeding & Fluids: Tolerating regular diet / thin liquids A- Analgesic & Anticoagulation: Comfort Goal: Numeric, Verbal, Faces: 0 - None Analgesic PRN oxycodone and Vistaril x1 Schedule Tylenol x1 Anticoagulation/DVT prevention & plan SCDs S- Skin: Elmer Subcategory Concern(s): Sensory Perception: No Impairment Moisture: Rarely Moist Activity: Chairfast Activity Interventions: Reposition every 2 hours Nutrition: Adequate Nutrition Interventions: Calorie intake Mobility: Slightly Limited Mobility Interventions: Turning every 2 hrs Friction and Shear: No Apparent Problem Total Elmer Score: 19: no skin noted, Aquacel C/D/ I T- Telemetry: Rhythm: Sinus Rhythm Ectopy: None No tele E- Emotional & Neuro: Participating in cares Neuro Alert and Oriented R- Respiratory: On room air, Per RT pt declined CPAP H- Head OUT of Bed & Activity: Activate Fall Alert? (Enter 1 or 0): (not recorded) A-1 with walker and brace.Progressive mobility Phases 5-7: (not recorded) U- Urologic/bowel: No data recorded Voiding gonzalez in place , pt states she passing gas no BM this shift. G- Glycemic Control: Not applicable T- Treatment: pain management, PT /OT, labs I- Invasive Devices: PIV X 2, Gonzalez D- Discharge: TBD * Storm Carlson RN - 06/08/2023 10:49 PM CDT Med-Surg Care Progression Note Type: Shift to shift summary Length of stay: 0 days Code Status: Full Code Primary Problem: Disc Replacement 5- S 1 Summary: post op vitals completed, and stable, pt ambulating well and pain managed with prn oxycodone and iv dilaudid. F- Feeding & Fluids: Tolerating regular diet / thin liquids A- Analgesic & Anticoagulation: Comfort Goal: Numeric, Verbal, Faces: 0 - None Analgesic PRN oxycodone, IV dilaudid Anticoagulation/DVT prevention & plan SCDs S- Skin: Elmer Subcategory Concern(s): Sensory Perception: No Impairment Moisture: Rarely Moist Activity: Chairfast Activity Interventions: Reposition every 2 hours Nutrition: Adequate Nutrition Interventions: Calorie intake Mobility: Slightly Limited Mobility Interventions: Turning every 2 hrs Friction and Shear: No Apparent Problem Total Elmer Score: 19: no skin noted, Aquacel C/D/ I T- Telemetry: Rhythm: Sinus Rhythm Ectopy: None No tele E- Emotional & Neuro: Participating in cares Neuro Alert and Oriented R- Respiratory: On room air H- Head OUT of Bed & Activity: Activate Fall Alert? (Enter 1 or 0): (not recorded) Ambulating in room and hallway Progressive mobility Phases 5-7: (not recorded) U- Urologic/bowel: No data recorded Voiding gonzalez in place G- Glycemic Control: Not applicable T- Treatment: pain management, PT /OT, labs I- Invasive Devices: PIV X 2, Gonzalez D- Discharge: TBD * Princess Leon RT - 06/08/2023 5:38 PM CDT Declined cpap. Orders d/c per protocol. * Roselia Yi RN - 06/08/2023 1:35 PM CDT Med-Surg Care Progression Note Type: Admission summary Length of stay: 0 days Code Status: Full Code Primary Problem: Disc replacement L5-S1 Summary: F- Feeding & Fluids: Tolerating Regular diet and thin liquids. IVF d/c'ed A- Analgesic & Anticoagulation: Comfort Goal: Numeric, Verbal, Faces: 6 - Severe Analgesic C/o pain 8/10 to abdomen PRN oxy, robaxin and vistaril Anticoagulation/DVT prevention & plan SCDs S- Skin: Elmer Subcategory Concern(s): Sensory Perception: No Impairment Moisture: Rarely Moist Activity: Bedfast Activity Interventions: Reposition every 2 hours Nutrition: Adequate Nutrition Interventions: N/A Mobility: Slightly Limited Mobility Interventions: Turning every 2 hrs Friction and Shear: No Apparent Problem Total Elmer Score: 18: No skin issues noted. Aquacel to Abdomen C/D/I T- Telemetry: Rhythm: Sinus Rhythm Ectopy: None No tele E- Emotional & Neuro: Participating in cares Neuro Alert and Oriented, drowsy R- Respiratory: 3L NC following surgery, wean as able H- Head OUT of Bed & Activity: Activate Fall Alert? (Enter 1 or 0): (not recorded) Not OOB thisshift U- Urologic/bowel: No data recorded Gonzalez in place. 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 Pt was sized w/LSO & it was left bedside to be transferred to floor w/pt for use later today if needed. No education provided at this time. Will f/u on 06/09/2023 to ensure pt's comfort & provide education on LSO. Please call our office w/any questions or concerns in the mean time. Thank you! Ashlee Felipe [employer]ER * Roselia Yi RN - 06/08/2023 11:37 AM CDT P. Admission A. Condition on Admit: alert. Patient/Family Concerns: Patient expressed concern about pain relief . I. Initial Interventions included: notified MD of patient arrival. Orientation to Unit: Patient oriented to how to call for help, name of assigned animal care attendant, initialphysician orders, hourly rounding procedures, unit and plan of care. R. Patient expressed understanding of information.. Roselia Yi RN * Javier Lepe - 06/08/2023 7:05 AM CDT Summary: Infusion Pharmacist visit at this patient's request to provide pre-surgery support and prayer. Rev. Chaplain Schrader M.Div. CEC 06/08/2023 0700 am documented in this encounter Consult Notes * Zuly Mack, OT - 06/09/2023 4:18 PM CDT Occupational Therapy Acute Evaluation Patient Name: Carolina Garrido Today's Date: 06/09/2023 Admission Date: 06/08/2023 ASSESSMENT/PLAN/RECOMMENDATIONS Assessment/Plan/Recommendations OT Assessment Results: Impaired ADLs, Impaired IADLs, Impaired functional mobility, Impaired endurance Strengths: Age, Good family support, Supportive living environment, Prior level of function, Patient cooperation, Patient motivation, Ambulatory Limitations/Discharge Barriers: Pain, Limited mobility, Needs assist with ADL Rehab Potential: Excellent OT Frequency: No further acute OT needed Discharge Support Recommendations: Requires increased assist/support Requires assist with the following ADLs: LE dressing, Shower/bathing Requires assist with the following IADLs: Meal prep, Homemaking, Driving Post Acute Therapy Needs: No OT needs OT Plan Comments: Pt is a 48 y.o. female admitted for elective 48 yo female s/p L5-S1 artificial disc replacement and interbody fusion. Pt lives with in 2 level home with all needs met on main level. Indep with ADLs and most IADLs at baseline (family assist with heavy homemaking, shopping, yardwork tasks at baseline). 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 Pt presents with significant pain, spinal precautions limiting performance of LB ADLs. Provided instruction with adaptive equipment for LB dressing/bathing. pt demonstrates good carryover. Completed bed mobility with Min A provided by spouse. LB dressing completed with very min assist. g/h completed with SBA standing sinkside., toileting with CGA. Anticipate pt will be able to discharge back to home once medically stable will support of spouse for LB dressing/bathing and increased support with homemaking tasks. UE strength functional, no further acute OT needs, signing off, please reorder if new needs arise. INPATIENT REHAB FACILITY CANDIDATE Inpatient Rehabilitation Facility Candidate Appropriate for Acute Inpatient Rehab?: No GENERAL General Visit Type: Initial Evaluation Diagnosis: elective artificial disc replacement at L5-S1 and L5-S1 interbody fusion; DOS 06/08 Admission/Diagnosis Details: The patient is a history of lumbar radiculopathy that failed conservative management and after discussion with surgical teams, agreed to L5-S1 artificial disc replacementand interbody fusion. Pertinent Past Medical History: HTN, lumbar radiculopathy Patient Seen In: Room Family/Caregiver Present: No Hearing: Within Functional Limits Subjective (Comment): presented in bed, agreeable to OT tx session PRECAUTIONS Precautions Devices/Equipment Required: Lumbar Spine Orthosis Precautions: Spinal Therapy Vitals BP: 154/89 HR: 95 SpO2: 93% Oxygen Delivery Device: Room Air SAFETY INTERVENTIONS Safety Interventions Fall Risk?: Yes Safety Interventions/Patient Disposition: Standard interventions, In bed, Call light in hand, All needs within reach, Other ( present) PAIN Patient complained of 7/10 pain in low back HOME LIVING Home Setup Type of Home: House Lives With: Spouse (teen-adult children at home) Home Layout: Two level Home Entry: Stairs to enter without rails Number of stairs: 2 Stairs within Home: Able to live on main level Comment: walk in shower, laundry, bathroom, and primary bedroom on main level. 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 Could hardly walk a block COGNITIVE STATUS Cognitive Status Cognition Comments: Oriented x 4 VISION Vision - Basic Assessment Current Vision: Wears glasses all the time UPPER EXTREMITY ASSESSMENTS ROM RUE ROM: Functional LUE ROM : Functional Strength RUE Strength: Functional LUE Strength: Functional AM-PAC Outcome Measure 6 Clicks Daily ADL AM-PAC Putting on and taking off regular lower body clothing?: A Little Bathing (including washing, rinsing, drying)?: A Little Toileting, which includes using toilet, bedpan or urinal?: A Little Putting on and taking off regular upper body clothing?: None Taking care of personal grooming such as brushing teeth?: None Eating meals?: None AM-PAC Daily Activity Raw Score: 21 AM-[facility] Daily Activity CMS 0-100% Score: 32.79 AM-[facility] Daily Activity t-Scale Score: 44.27 The following scores are predictive of discharge disposition during acute hospitalization: Home= 20.1; Home with Home Health= 17.9; TCU=14; IRF=13.6; LTACH=11.5 Please refer to narrative for assessment of functional performance and discharge recommendations asscores may not always reflect mobility, cognitive aspects of performance or instrumental activitiesof daily living (IADLs) CURRENT ADL/IADL STATUS Current ADL Status Equipment Provided: Tucking Machine Operator, Sock aid, Long-handled shoe horn, Long-handled sponge, Dressing stick Grooming Assistance: SBA UE Dressing Assistance: SBA LE Dressing Assistance: Minimal Toileting Assistance: CGA ADL Comments: Education provided on adaptive equipment for LB bathing, dressing. reviewed A/E recommendations to ease bed mobility/toileting FUNCTIONAL MOBILITY Bed Mobility Supine to Sit: Minimum assistance Sit to Supine: Contact guard Dangling: SBA Functional Transfers Sit to Stand: Contact guard, SBA Stand to Sit: Contact guard Functional Mobility Functional Mobility: ambulated ADL distances with RW and CGA EXERCISE Functional Activity Functional Activity: Education on spinal precautions, bed mobility, safe RW use during ADLs ACTIVITY TOLERANCE Activity Tolerance Endurance: Participates 20-30 min of therapy session PATIENT EDUCATION Patient Education Patient Education: Plan of care, Role of OT, Recommendations based upon assessments, Discharge recommendations, Adaptive equipment, Compensatory techniques for ADLs TIME SPENT WITH PATIENT OT Timed Code Treatment Minutes OT Evaluation: 15 OT Self-Care/Home Management: 20 OT Therapeutic Activity: 9 OT Total Minutes Spent with Patient Total Minutes Spent With Patient (billable): 44 Minutes GOALS Time Frame Short term goals target date: 06/09/23 Patient/Family Participation in Goal Setting Patient participated in goal setting: Yes Patient goal preference: to go home STG Grooming Patient will complete daily grooming and light hygiene task: with supervision Outcome: Goal Met STG LE Dressing Patient will dress lower body donning/doffing: underwear, pants, socks, shoes, with minimal assist,with adaptive equipment/strategies, with compensatory strategies Outcome: Goal Met STG Toileting Patient will complete toileting: with contact guard Outcome: Goal Met * Erika Juares, PT - 06/09/2023 11:53 AM CDT Acute Physical Therapy Evaluation Patient Name: Carolina Garrido Today's Date: 06/09/2023 Admission Date: 06/08/2023 Precautions Precautions Devices/Equipment Required: Lumbar Spine Orthosis Precautions: Spinal Assessment PT Assessment/Recommendations Assessment: Pt is a 48 yo female s/p L5-S1 artificial disc replacement and interbody fusion. Pt lives with in 2 level home with all needs met on main level. Reports being independent with mobility at baseline, though reports progressive decline in functional mobility prior to surgery d/t severity of pain. Pt presenting with severe SI and incisional pain limiting independence with functional mobility post-op, though denies any radicular symptoms. Pt currently requiring SBA with bed mobility, transfers, and amulation using RW. Mobility is slow and effortful, but pt is able to mobilize under her own power. Educated on spinal precautions and log roll technique. Recommend initial SBA with mobility and use of RW upon d/c. Strengths: Age, Good family support, Patient motivation, Ambulatory, Good strength, Strong discharge support Limitations/Discharge Barriers: Pain Endurance: Participates 20-30 min of therapy session Prognosis: Good Recommendations for Nursing: Mobilize assist of 1 with gait belt, Ambulate 2- 3x/day, Up to chair 2-3x/day, Use of assistive device with mobility Type of Assistive Device: RW Discharge Support Recommendations: Is safe to discharge to previous living situation with prior level of assist/support Mobility Needs at Discharge: Supervision during mobility Post Acute Therapy Needs: No PT needs (may eventually benefit from follow up with OPPT) Equipment Recommended for Discharge: Rolling walker, Shower chair Plan PT Frequency: No further acute PT needed Encounter Details General Diagnosis: elective artificial disc replacement at L5-S1 and L5-S1 interbody fusion; DOS 06/08 Admission/Diagnosis Details: The patient is a history of lumbar radiculopathy that failed conservative management and after discussion with surgical teams, agreed to L5-S1 artificial disc replacementand interbody fusion. Pertinent Past Medical History: HTN, lumbar radiculopathy Patient Seen In: Room Family/Caregiver Present: Yes Who was present?: Subjective Comments: Pt sitting up on EOB upon arrival, agreeable to PT Subjective/Social History Home Setup Type of Home: House Lives With: Spouse Home Layout: Two level Home Entry: Stairs to enter without rails Number of stairs: 2 Stairs within Home: Able to live on main level Comment: walk in shower, laundry, bathroom, and primary bedroom on main level. States will be home with her for 27/03 supervision/support over next few weeks Prior Level of Functional Mobility Independent with: All Mobility Mobility Equipment Used: None DME owned: None History of falls: None Comment: Reports having increased difficulty with mobility prior to surgery d/t severity of pain. Could hardly walk a block Pain Patient complained of 9/10 low back pain along incision and B SI joints Objective Cognitive Status Orientation Level: Oriented X4 Arousal/Alertness: Appropriate responses to stimuli Following Commands: Follows multistep commands Safety Judgment: Intact Motor Planning/Processing: Within Functional Limits Therapy Vitals BP: 116/67 HR: 99 ROM RLE: WFL LLE: WFL Strength Overall RLE Strength: WFL, Impaired due to pain Overall LLE Strength: WFL, Impaired due to pain Comments: mildly impaired functional LE strength d/t pain Sensation Light Touch: Intact in the RLE, Intact in the LLE Sensation Comments: denies any numbness/tingling in B LEs; reports radicular symptoms that were present prior to surgery seem to have resolved Patient is functioning as follows: Bed Mobility Roll Left: Supervision Supine to Sit: Standby assist Sit to Supine: Standby assist, Contact guard assist/steadying assist Dangling: Supervision, Independent Scooting: Supervision Setup/Equipment: HOB flat, Bed rail Cueing Provided: Verbal Bed Mobility Comments: Cues for log roll technique with pt demonstrating good technique with practice. Effortful/limited by pain Transfers Transfer Type: Sit to/from Stand, Stand Pivot Sit to/from Stand Level of Assist: Standby assist Assistive Device: Rolling walker Comments: Cues for safety with hand positioning. Steady upon standing. Denies lightheadedness Stand Pivot Stand Pivot Level of Assistance: Standby assist Stand Pivot Assistive Device: Rolling walker Comments: slow but steady using RW Ambulation Ambulation Assessment: Bout 1 Bout 1 Surface: Level ivelisse Complexity: Forward stepping Distance (ft): 300 feet Assistive Device: Rolling walker Level of Assist: Standby Assist Quality of Gait: slow joanna, short step lengths, reciprocal pattern, steady using RW, light-moderate UE support on RW Comments: educated pt on importance of ambulating post-op, avoiding lying/sitting for more than 1 hour at a time Stairs/Curb Negotiation Stairs/Curb Negotiation: Bout 1 Bout 1 Comments: Did not perform d/t severity of pain and limited stairs at home. Educated pt on recommendation for holding onto for support to navigate 2 steps to enter home. Step to pattern. [facility] AM-PAC 6-Clicks Turning over in bed (including adjusting bed clothes, sheets, and blankets): Minimum/contact guard/standby assist Sitting down and standing up from a chair with arms: Minimum/contact guard/standby assist Moving from lying on back to sitting on the side of bed: Minimum/contact guard/standby assist Moving to and from a bed to a chair: Minimum/contact guard/standby assist Walk in hospital room?: Minimum/contact guard/standby assist Climbing 3-5 steps with a railing: Minimum/contact guard/standby assist AM-PAC 6 Clicks: Mobility Total Score: 18 The following scores are predictive of discharge disposition during acute hospitalization: Home= 20or greater; Home with Home Health=18; Continued skilled care at appropriate facility= 14 or less. Treatment Therapeutic Activity Therapeutic Activity: Activity 1 Activity 1: Educated pt on spinal precautions and log roll technique. Education on safety with mobility. See above sections for details. Educated on donning/doffing of LSO. Education/Safety Education Provided Patient Education: Role of PT, Bed mobility, Transfers, Ambulation, Safe use of assistive device, Post-surgical precautions, Safety with mobility, Plan of care, Discharge recommendations Family Education: Safe mobility techniques, Discharge recommendations Safety Interventions Fall Risk?: Yes (though likely low if using RW) Safety Interventions/Patient Disposition: Standard interventions, In chair, Call light in hand, Allneeds within reach Comment: in room Goals Time Frame Goals target date: 06/09/23 Patient/family participation in goal setting Patient/family participation in goal setting: Yes Patient goal preference: wants to return home and eventually have less pain, improved strength, andhoping to lose some weight Patient will Participate in PT Evaluation Patient will participate in PT evaluation in order to provide safe discharge mobility recommendations: Goal met TIME SPENT WITH PATIENT PT Time Spent with Patient for Evaluation PT Evaluation: 20 PT Timed Code Treatment Minutes (outside of evaluation) PT Therapeutic Activity: 10 PT Timed Code Treatment Minutes PT Total Billable Minutes: 30 Minutes * Nati Smith PA-C - 06/08/2023 12:29 PM CDT Images from the original note were not included. HOSPITALIST DIVISION CONSULT NOTE Patient Name: Carolina Garrido Address: [address] [place] [address] Age:48 y.o. Sex: female Admission Date/Time: 06/08/2023 5:29 AM Requesting Physician: Dr. Barrera [facility] Attending Physician: Vasyl Barrera MD I was asked to see this patient at the request of Dr. Barrera for evaluation of medication management following artificial dis replacement L5-S1. HPI: Carolina Garrido is a 48 y.o. female with PMH of sacroiliitis, L5-S1 disc displacement, who presents for scheduled L5-S1 disc replacement surgery. H&P performed 06/01. Patient states she is in a lot of pain following surgery. She has sensation in her BLE. No chest pain, shortness of breath, nausea, vomiting, diarrhea. REVIEW OF SYSTEMS: A comprehensive review of systems was negative except for items noted in the HPI/Subjective. PAST MEDICAL HISTORY Past Medical History: Diagnosis Date Cancer (HCC) basal carcinoma Chronic pain HTN (hypertension) Sleep apnea CPAP PAST SURGICAL HISTORY Past Surgical History: Procedure Laterality Date COCHLEAR DEVICE ear tubes x7 IMPLANT PROCEDURE bladder sling and IUD TUMOR ABLATION removal of pinky tumor VASCULAR SURGERY PROCEDURE UN* varicose veins ALLERGIES/SENSITIVITIES No Known Allergies FAMILY HISTORY No family history on file. SOCIAL HISTORY Social History Socioeconomic History Marital status: Spouse name: Not on file Number of children: Not on file Years of education: Not on file Highest education level: Not on file Occupational History Not on file Tobacco Use Smoking status: Never Smokeless tobacco: Never Substance and Sexual Activity Alcohol use: Not Currently Drug use: Never Sexual activity: Not on file Other Topics Concern Not on file Social History Narrative Not on file Social Determinants of Health Financial Resource Strain: Not on file Food Insecurity: Not on file Transportation Needs: Not on file Physical Activity: Not on file Stress: Not on file Social Connections: Not on file Intimate Partner Violence: Not on file Housing Stability: Not on file CURRENT MEDS Current Facility-Administered Medications: acetaminophen (TYLENOL) tablet 1,000 mg, 1,000 mg, oral, Q6H (NS) OR acetaminophen (TYLENOL) rectal suppository 650 mg, 650 mg, Rectal, Q6H (NS), Marquez Rosenthal PA-C alum-mag hydroxide-simethicone (MAALOX PLUS) suspension 15-30 mL, 15-30 mL, oral, Q6H PRN, Marquez Rosenthal PA-C ceFAZolin (Ancef) 2 g in sodium chloride 0.9 % 100 mL IV piggyback, 2 g, Intravenous, Q8H (NS), Marquez Rosenthal PA-C CELL SAVER: heparin 30,000 units in sodium chloride 0.9% (conc: 30 units/mL), , Per Cell Saver, ONCE, Vasyl Barrera MD D50W IV syringe 25-50 mL, 25-50 mL, Intravenous, PRN, Marquez Rosenthal PA-C D50W IV syringe 25-50 mL, 25-50 mL, Intravenous, PRN, Marquez Rosenthal PA-C docusate sodium (COLACE) capsule 100 mg, 100 mg, oral, Twice Daily, Marquez Rosenthal PA-C, 100 mg at 06/08/23 1147 glucagon, human recombinant (Glucagen) injection (conc: 1 mg/mL) 1 mg, 1 mg, IntraMUSCULAR, Q 15 MINS PRN, Marquez Rosenthal PA-C HYDROmorphone (DILAUDID) syringe 0.2-0.4 mg, 0.2-0.4 mg, Intravenous, Q4H PRN, Marquez Rosenthal PA-C hydrOXYzine pamoate (Vistaril) capsule 50 mg, 50 mg, oral, Q3H PRN, Marquez Rosenthal PA-C methocarbamoL (ROBAXIN) tablet 750 mg, 750 mg, oral, QID PRN, Marquez Rosenthal PA- C, 750 mg at 06/08/23 1147 naloxone (NARCAN) injection 0.1 mg, 0.1 mg, Intravenous, Q1 MINUTE PRN, Marquez Rosenthal PA-C ondansetron (ZOFRAN) injection 4 mg, 4 mg, Intravenous, Q8H PRN OR ondansetron (ZOFRAN) disintegrating tablet 4 mg, 4 mg, oral, Q8H PRN, Marquez Rosenthal PA-C oxyCODONE (immediate release) (ROXICODONE) tablet 5-10 mg, 5-10 mg, oral, Q4H PRN, Marquez Rosenthal PA-C PHYSICAL EXAM: Vitals: 06/08/23 1131 06/08/23 1145 06/08/23 1200 06/08/23 1215 BP: 116/63 116/60 105/61 (!) 110/56 Pulse: 85 83 83 83 Resp: 13 Temp: 98 ??F (36.7 ??C) SpO2: 98% 96% 94% 96% Weight: 114.6 kg (252 lb 10.4 oz) Height: 5' 5 (1.651 m) O2 Delivery Source: Nasal Cannula Temp (24hrs), Av ??F (36.7 ??C), Min:97.8 ??F (36.6 ??C), Max:98 ??F (36.7 ??C) Wt Readings from Last 2 Encounters: 06/08/23 114.6 kg (252 lb 10.4 oz) 01/23/23 103 kg (227 lb) Body mass index is 42.04 kg/m??. General: Well-developed, well-nourished. NAD. Falling asleep during interview. HENT: Normocephalic, atraumatic. Eyes non-icteric, conjunctive non-injected. Nose: patent nares. Mouth: moist mucous membranes. Neck: Full ROM. Trachea appears midline. Chest/Cardiovascular: Regular rate, regular rhythm. No audible murmurs. Pulmonary: No increased work of breathing. Speaking in full sentences. No wheezes, rhonchi, or rales. Abdomen: Soft. No tenderness or rebound. No distention. Extremities: Normal ROM of all four extremities. No obvious deformities. No LE edema or calf pain. Skin: No visible rashes on exposed skin. No pallor or jaundice. Neuro: CN II-XII grossly intact. Awake and answering questions appropriately. LABS: Results for orders placed or performed during the hospital encounter of 06/08/23 (from the past 24 hour(s)) hCG Urine Result Value Ref Range HCG URINE Negative Negative POCT Glucose Meter Result Value Ref Range GLUCOSE WB METER 101 (H) 60 - 100 mg/dL EKG: Pre-op EKG is reassuring without ischemic changes or arrhythmia. ADDITIONAL COMMENTS: I reviewed the patient's new clinical lab test results. I reviewed the patient's medications. I reviewed the patient's new imaging test results. I discussed the patient's care with Dr. Roa. Old records reviewed. CONSULTATION ASSESSMENT AND PLAN/RECOMMENDATIONS: Principal Problem: Lumbar radiculopathy Active Problems: Sacroiliitis (HCC) Primary hypertension Carolina Garrido is a 48 y.o. female with PMH of sacroiliitis, L5-S1 disc displacement, who presents for scheduled L5-S1 disc replacement surgery. S/p artifical disc replacement L5-S1 on 06/08 Sacroiliitis Patient is s/p disc replacement surgery today following L5-S1 disc displacement and severe back pain. No immediate complications following surgery. Patient is fatigued on arrival due to anesthesia and reports pain. BLE with CMS intact following surgery. Management per neurosurgery team. Patient will receive a brace. -Pain management: prn oxycodone, dilaudid, tylenol, robaxin, vistaril -IS: encouraged -gonzalez: present -BM meds: Colace BID -diet: ADAT; regular. Patient has not eaten yet -Labs: AM labs ordered -PT/OT - pending assessment Chronic Problems HTN Holding for AM BMP. Prn hydralazine ordered. CAMILA -cpap ordered CODE STATUS: Full Code DVT prophylaxis: SCDs DISPOSITION: Anticipated date of discharge 06/10/2023, Criteria for discharge is PT/OT clearance, pain control. I thank Dr. Barrera for the opportunity to participate in the patient's care. Time: 20 minutes Nati Smith PA-C , [facility] Medicine Associated attestation - Luis M Roa MD - 06/08/2023 4:44 PM CDT Patient is a 48-year-old woman with a past medical history of sacroiliitis and L5-S1 disc displacement which admitted for planned L5-S1 disc replacement. The surgery was completed without complication. On exam patient with preserved bilateral lower extremity movement and sensation. Postoperative management and discharge planning per orthopedic surgery. I have personally shared in the visit of this patient along with the NEIL providing [id number] participation in the evaluation and management. I agree with the NEIL assessment and plan with the following additions: Above has been edited to reflect our joint A/P. If concerns 8am-6pm, please page me via Amion. If concerns 6pm-8am, page ACM Hospitalist via Amion. Luis M Roa MD Internal Medicine/Hospital Medicine documented in this encounter Nursing Notes * Roselia Barber RN - 06/10/2023 12:07 PM CDT Problem: Falls/Injury-Risk of Goal: Absence of Falls/Injury Outcome: Completed Problem: Pressure Injury - Risk of Goal: Absence of pressure injury Outcome: Completed Problem: Pain - Acute Goal: Exhibits reduction in pain to an acceptable level of comfort Outcome: Completed Problem: Respiratory Status - Altered, Actual or Risk of Goal: Exhibits no signs or symptoms of respiratory distress Outcome: Completed Problem: Infection - Risk of, Surgical Site Infection Goal: Verbalizes an understanding of infection risks and prevention measures Outcome: Completed Problem: Mobility - Impaired Goal: Demonstrates ability to perform physical activity independently or with assistive devices as needed Outcome: Completed Problem: Discharge Planning Goal: Verbalize an understanding of discharge instructions Outcome: Completed Problem: Mobility - Impaired Goal: Demonstrates ability to perform physical activity independently or with assistive devices as needed Outcome: Completed Goal: Verbalizes an understanding of immobility risks and complications Outcome: Completed Problem: Discharge Planning Goal: Establish appropriate post-hospitalization placement Outcome: Completed * Diana Beasley RN - 06/10/2023 2:32 AM CDT Problem: Falls/Injury-Risk of Goal: Absence of Falls/Injury Outcome: Met this shift Problem: Pressure Injury - Risk of Goal: Absence of pressure injury Outcome: Met this shift Problem: Pain - Acute Goal: Exhibits reduction in pain to an acceptable level of comfort Outcome: Met this shift Problem: Mobility - Impaired Goal: Demonstrates ability to perform physical activity independently or with assistive devices as needed Outcome: Met this shift * Rena Villa RN - 06/09/2023 9:25 AM CDT Problem: Discharge Planning Goal: Establish appropriate post-hospitalization placement Outcome: Ongoing Flowsheets (Taken 06/09/2023 0925) Date of Last CM Visit: 06/09/23 Discharge Planning Initial Assessment Patients chart reviewed. Patient discussed in rounds. Admitting diagnoses: Displacement of lumbar intervertebral disc without myelopathy, Lumbar radiculopathy s/p L5-S1 disc replacement POD #1. LSO brace insitu. Pain management is her main concern at this time. Patient encouraged to ask RN for analgesics prior to pain becoming severe. Admitted from: Home In two level home with Master bedroom on ground floor. Prior: Living Arrangements: Spouse/significant other;Children Lives at home with and children. Works fulltime as [employer] at [employer]. Off work for 6 weeks. Support Systems: Spouse/significant other;Family members;Children;Friends/neighbors is off work to look after her for next 3 weeks. Brother and friends available for support. Primary decision maker: Patient DME prior to admission: nil Anticipated Discharge Needs: Nil anticipated Care coordination initiated: Met with patient;Chart reviewed;Care discussed during rounds with nursing Barriers to discharge: Nil anticipated Met with patient today. Introduced self and the role of case management and discharge planning. Patient was previously independent with ADLs. No history of TCU or home care services. No DME INVENTORY ASSOCIATE AND DRIVER. Aquilino will drive her home on discharge. Used OP PT INVENTORY ASSOCIATE AND DRIVER, keen to resume PT with her. Assessed for discharge needs. Patient will likely discharge to home with no needs identified. Care management will continue to follow. Lala Villa RN, [facility] [place], [facility] Float Assistant Food Service Manager 06/09/2023 9:33 AM Secure chat: Rena Villa * Dawn Nieves RN - 06/09/2023 2:26 AM CDT Problem: Falls/Injury-Risk of Goal: Absence of Falls/Injury Outcome: Met this shift Flowsheets Taken 06/09/2023 0044 by Dawn Nieves RN Environmental Safety Interventions: Standard Interventions in Place Mobility Safety Interventions: Standard Interventions in Place Elimination Safety Interventions: Standard Interventions in Place Medication: Standard Interventions in Place Taken 06/08/2023 1540 by Storm Carlson RN Consults: Pharmacy Consult for Medication Review Physical Therapy (Requires MD Order) Problem: Pain - Acute Goal: Exhibits reduction in pain to an acceptable level of comfort Outcome: Met this shift * Storm Carlson RN - 06/08/2023 10:50 PM CDT Problem: Falls/Injury-Risk of Goal: Absence of Falls/Injury 06/08/[id number] by Storm Carlson RN Outcome: Met this shift 06/08/20232114 by Storm Carlson RN Outcome: Met this shift Problem: Pressure Injury - Risk of Goal: Absence of pressure injury 06/08/[id number] by Storm Carlson RN Outcome: Met this shift 06/08/20232114 by Storm Carlson RN Outcome: Met this shift Problem: Pain - Acute Goal: Exhibits reduction in pain to an acceptable level of comfort 06/08/[id number] by Storm Carlson RN Outcome: Met this shift 06/08/20232114 by Storm Carlson RN Outcome: Met this shift Problem: Mobility - Impaired Goal: Demonstrates ability to perform physical activity independently or with assistive devices as needed 06/08/20232248 by Storm Carlson RN Outcome: Met this shift 06/08/20232114 by Storm Carlson RN Outcome: Met this shift * Storm Carlson RN - 06/08/2023 9:15 PM CDT Problem: Falls/Injury-Risk of Goal: Absence of Falls/Injury Outcome: Met this shift Problem: Pressure Injury - Risk of Goal: Absence of pressure injury Outcome: Met this shift Problem: Pain - Acute Goal: Exhibits reduction in pain to an acceptable level of comfort Outcome: Met this shift Problem: Mobility - Impaired Goal: Demonstrates ability to perform physical activity independently or with assistive devices as needed Outcome: Met this shift * Lindsey Gonzalez RN - 06/08/2023 11:04 AM CDT Patient monitored post-operatively in PACU. On arrival patient awake and alert, now sleeping between cares, but arouses quickly to voice. Vital signs stable on oxygen via nasal cannula at 3 LPM. Complaint of pain in back/low abdomen rating 8/10 consistently, however patient able to sleep and appears more comfortable after IV Fentnayl, IV Dilaudid, and IM Vistaril. Discussed pain rating with Dr. Reese and informed him that patient sleeping with RR in 10-12 range, okay with patient transferring to floor at current reported pain level. Denies nausea. Dressing to lower abdomen is clean, dry and intact. CMS intact, ex for tingling in BLE which is baseline for patient. Report given to Shannon on A7. Patient transferred via cart with NA. documented in this encounter OR Notes * OR Surgeon - Orville Vickers MD - 06/08/2023 5:34 PM CDT [facility] VASCULAR SURGERY OPERATIVE REPORT DATE OF PROCEDURE: 06/08/2023 VASCULAR SURGEON: Orville Vickers MD SPINE SURGEON: Vasyl Barrera MD PREOPERATIVE DIAGOSIS: Lumbar radiculopathy POSTOPERATIVE DIAGOSIS: same PROCEDURES PERFORMED: Anterior spine exposure for Lumbar5-Sacral 1 interbody fusion ANESTHESIA: General ESTIMATED BLOOD LOSS: 50ml CONTRAST: none SPECIMEN: none COMPLICATIONS: none noted DISPOSITION: PACU. BRIEF INDICATION FOR PROCEDURE: Carolina Garrido is a 48-year-old female with lumbar radiculopathy. Please refer to Dr. Barrera operative report for indication of surgery. Due to the need for anteriorexposure, vascular surgery was consulted. DESCRIPTION OF PROCEDURE: After obtaining consent, she was taken to the operating placed on table spine fashion. She was induced under general endotracheal anesthesia. She had an arterial line appropriate intravenous access obtained by the anesthesia staff. She had a Gonzalez catheter inserted. She was given the appropriate periprocedural antibiotics. Her abdomen and groins were prepped and draped using standard sterile technique. A timeout procedure was then performed confirming correct patient, site, and operation. After the timeout procedure, A lower midline incision made carried down through subcutaneous tissue down to the fascia. The fascia was opened in the midline. The rectus muscles was elevated and the retroperitoneal space entered.The abdominal contents were mobilized to the patient's right and cephalad. This exposed the retroperitoneal vasculature. The L4-5 S1 interbody disc space was dissected and the surrounding tissue freed up. The middle lumbar artery was ligated with electrocautery. Dr. Barrera then scrubbed into theoperating perform the interbody fusion. Please refer to his operative dictation for those details. Upon completion of his portion of the case, the retroperitoneal space was inspected and no bleeding e ncountered. The peritoneal contents were placed back into their normal anatomic location. The fascia was then closed with #1 looped PDS. Yumi's fascia was reapproximated with 2-0 Vicryl. Skin was closed with 4-0 Monocryl. Sterile dressings were applied. Sponge instrument counts were correct. She was awoken from general endotracheal anesthesia and transferred recovery room. Orville Vickers MD * Brief Op Note - Marquez Rosenthal PA-C - 06/08/2023 10:05 AM CDT Name: Carolina Garrido : 1975 Hospital: [facility] POSTOPERATIVE / POSTPROCEDURE NOTE - IMMEDIATE : Preprocedure Diagnosis: Displacement of lumbar intervertebral disc without myelopathy [M51.26] Postprocedure Diagnosis: same Surgeon(s)/Proceduralist(s) and Assistants (if any): Surgeon: Vasyl Barrera MD Cashier Or Checker Stock Clerk: Marquez Rosenthal PA-C Surgeon(s): Vasyl Barrera MD Lee, Marlon A, MD @[facility]@ Anesthesiologist: Faisal Reese MD TRANSPORTATION SALES CONSULTANT: Lisa Quinn APRN, CRNA; Tawanda Hi APRN, CRNA SRNA: Jem Ferrari Procedure(s): Procedure(s): ARTIFICIAL DISC REPLACEMENT L5-S1 (N/A) EXPOSURE: LUMBAR (Bilateral) Anesthesia: GETA Procedure(s) findings: Above, as expected. Specimen(s) removed: none sent (EBL) Estimated blood loss (ml): 25cc Complications: none Disposition: transferred to recovery in stable condition. Marquez Rosenthal PA-C [facility] [phone] Indications: I was asked by Vasyl Barrera MD to assist with surgery. I positioned and prepped the patient. I retracted soft tissue for operative exposure. I suctioned fluids. I provided traction for dissection. I helped to ligate blood vessels. I helped Vasyl Barrera MD identify and protect important structures. I sutured and bandaged the incision. The procedure was medically necessary for an home care assistant because Vasyl Barrera MD needed the operative exposure and assistance that I provided. This allowed him to safely and efficiently operate. It was also important that I help ligate blood vessels to maintain hemostasis and reduce the bleeding risk. The assistance that I provided reduced operative time which meant less general anesthetic for the patient. Brace: Patient requires a prefabricated Lumbar Sacral Brace that offers tri-planar immobilization/support/stabilization of the lumbar spine to aid in pain reduction, healing of a spinal injury, and/or healing following a spinal procedure. * OR Surgeon - Vasyl Barrera MD - 06/08/2023 8:05 AM CDT Carolina Garrido 1975 [id number] DATE OF OPERATIVE PROCEDURE: 06/08/2023 Attending: Vasyl Barrera MD CO-SURGEON Orville Vickers. ANTICHECKING IRON WORKER Marquez Rosenthal PA-C PREOPERATIVE DIAGNOSES 1. Severe discogenic collapse L5-S1 2. Failed conservative management. POSTOPERATIVE DIAGNOSES 1. Severe discogenic collapse L5-S1 2. Failed conservative management. PROCEDURES PERFORMED 1. Total Disc Replacement, L5-S1. PREOPERATIVE ANTIBIOTIC Kefzol. ANESTHESIA General endotracheal. ESTIMATED BLOOD LOSS 25 cc. COMPLICATIONS None. IMPLANTS 8.5 mm AESCULAP ACTIVE L (Medium footprint) DRAINS None. SPECIMENS None. FINDINGS As expected. INDICATION FOR PROCEDURE Carolina Garrido is a pleasant 48 year-old female who had disc collapse at L5-S1. She struggled with significant back pain which did not improve with conservative care. I discussed risks and benefits of lumbar disc replacement with the Active L device. He did wish to proceed with operative intervention. He had no further questions today and wished to proceed. DETAILS OF PROCEDURE Following induction of general endotracheal anesthesia, the patient was placed in a supine positionon the operative table. All bony prominences were padded, and the patient was prepped and draped inthe usual fashion utilizing sterile technique. A timeout was called prior to making incision. Antibiotics were in. At this point, a left-sided retroperitoneal approach to the L5-S1 segment was undertaken by Orville Vickers MD and details can be found in his operative report. Levels confirmed and reconfirmed. The L5-S1 segment was nicely exposed and level was confirmed under fluoroscopic imaging. An 11 blade was utilized to enter the disk space, and a combination of pituitary rongeurs, straight and curved curettes, intradiscal rosi and intradiscal rasps were utilized to create a radical [id number] diskectomy at the L5-S1 segment. Excellent disk height distraction was achieved with intra discal spreaders. Sizers were placed and an appropriate AESCULAP ACTIVE L device was chosen and inserted at L5-S1. Final imaging showed excellent position and centered between the pedicles. Wound was irrigated with antibiotic solution and wound closure was done by Orville Vickers MD and details can be found in his operative report. Sterile dressings were applied and this completed Orville Vickers MD portion of the procedure. The patient was transferred to the recovery room bed in satisfactory condition. Had no changes in preoperative neurologic examination, was cardiovascularly intact throughout. [facility] provided assistance with preoperative positioning, prepping, and draping of the patient. The home care assistant provided vital operative assistance with retraction using instruments best providing the necessary exposure and visualization for the case, manipulation of tissues to achieve hemostasis, suction for visualization and assisted in wound closure. The home care assistant also helped place instrumentation under direct visualization of the surgeon. Postoperatively they assisted in the transfer of the patient off of the operative table and transition into the post anesthesia care unit with berry sition of care being made to the anesthesiologist. Vasyl Barrera MD SPINE SURGEON/ [facility] documented in this encounter Plan of Treatment Scheduled Referrals Name Type Priority Associated Diagnoses Orde r Schedule Follow Up Follow Up Routine Ordered: 06/09 Follow Up Follow Up Routine Ordered: 06/10 documented as of this encounter Procedures Procedure Name Priority Date/Time Associated Diagnosis Comments CBC (HGB,HCT,WBC,RBC,PL ATELET) Routine 06/09/2023 7:30 AM CDT BASIC METABOLIC PROF MAGNESIUM Routine 06/09/2023 7:29 AM CDT EXTRA TUBE-BLOOD BANK Routine 06/08/2023 12:30 PM CDT HEMOGLOBIN Routine 06/08/2023 12:09 PM CDT XR C-ARM SPINE STAT 06/08/2023 9:33 AM CDT LUMBAR SPINE FUSION,ANTER NEIL* 06/08/2023 6:50 AM CDT Displacement of lumbar intervertebral disc without myelopathy NC TOTAL DISC ARTHRP ANT SINGLE INTERSPACE LUMBAR 06/08/2023 6:50 AM CDT Displacement of lumbar intervertebral disc without myelopathy POCT GLU METER STAT 06/08/2023 5:52 AM CDT HCG URINE STAT 06/08/2023 5:42 AM CDT documented in this encounter Results * (ABNORMAL) CBC (Hgb,Hct,WBC,RBC,Platelet) (06/09/2023 7:30 AM CDT) WBC 10.4 4.3 - 10.8 K/uL 06/09/2023 8:07 AM T [facility] RBC 3.89(L) 4.20 - 5.40 M/uL 06/09/2023 8:07 AM [facility] Hemoglobin 11.6(L) 12.0 - 16.0 gm/dL 06/09/2023 8:07 AM T [facility] Hematocrit 34.9(L) 36.0 - 48.0 % 06/09/2023 8:07 AM [facility] MCV 90 80 - 100 fL 06/09/2023 8:07 AM [facility] MCH 30 27 - 33 pg 06/09/2023 8:07 AM [facility] MCHC 33 33 - 36 gm/dL 06/09/2023 8:07 AM [facility] RDW 12.2 11.5 - 14.5 % 06/09/2023 8:07 AM [facility] Platelet Count 266 150 - 400 K/UL 06/09/2023 8:07 AM [facility] MPV 9.9 6.5 - 12 fL 06/09/2023 8:07 AM [facility] Blood 06/09/2023 7:30 AM CDT 06/09/2023 7:50 AM CDT Nati Gallardo PA-C HEMATOLOGY ORDERA BLE [facility] [address] [place] [id number] * (ABNORMAL) Basic Metabolic Profile Magnesium (06/09/2023 7:29 AM CDT) Sodium 142 136 - 145 mmol/L ATELLICA ANALYZER 06/09/2023 8:22 AM [facility] Potassium 3.8 3.4 - 5.1 mmol/L ATELLICA ANALYZER 06/09/2023 8:22 AM [facility] Chloride 107 98 - 108 mmol/L ATELLICA ANALYZER 06/09/2023 8:22 AM [facility] Carbon Dioxide 29 20 - 31 mmol/L ATELLICA ANALYZER 06/09/2023 8:22 AM [facility] BUN (Urea Nitro) 8(L) 9 - 23 mg/dL ATELLICA ANALYZER 06/09/2023 8:22 AM [facility] Creatinine 0.59 0.55 - 1.02 mg/dL ATELLICA ANALYZER 06/09/2023 8:22 AM [facility] Est GFR (CKD-EPI) >60.00 >60.00 mL/min/1. 73m2 ATELLICA ANALYZER 06/09/2023 8:22 AM [facility] Comment:Calculation based on the Chronic Kidney Disease Epidemiology Collaboration (CKD-EPI) equation refit without adjustment for race. Glucose 103 74 - 106 mg/dL ATELLICA ANALYZER 06/09/2023 8:22 AM T [facility] Calcium, Serum 8.9 8.7 - 10.4 mg/dL ATELLICA ANALYZER 06/09/2023 8:22 AM [facility] Anion Gap 6.0 0.0 - 15.0 mmol/L ATELLICA ANALYZER 06/09/2023 8:22 AM [facility] Magnesium 1.9 1.6 - 2.6 mg/dL ATELLICA ANALYZER 06/09/2023 8:22 AM [facility] Blood 06/09/2023 7:29 AM CDT 06/09/2023 7:52 AM CDT Nati Gallardo PA-C CHEMISTRY ORDERAB LE Performing Organization Address City/[facility]/ZIP Co de Phone Number [facility] [address] [place] [address] * Extra Tube-Blood Bank (Lab Use Only) (06/08/2023 12:30 PM CDT) Blood 06/08/2023 12:3 0 PM CDT 06/08/2023 12:30 PM CDT Vasyl Barrera MD BLOOD BANK ORDERA BLE Performing Organization Address City/[facility]/ZIP Co de Phone Number [facility] [address] [place] [address] * Hemoglobin (06/08/2023 12:09 PM CDT) Hemoglobin 12.8 12.0 - 16.0 gm/dL 06/08/2023 12:48 PM CDT [facility] Blood 06/08/2023 12:0 9 PM CDT 06/08/2023 12:16 PM CDT Marquez Rosenthal PA-C HEMATOLOGY ORDERABLE Performing Organization Address City/[facility]/ZIP Co de Phone Number [facility] [address] [place] [address] * XR C-ARM SPINE (06/08/2023 9:33 AM CDT) Anatomical Region Laterality Modality Computed Radiogr aphy 06/08/2023 1:44 PM CDT Impressions 06/08/2023 1:44 PM CDT IMPRESSION: 1. ??Fluoroscopic assistance provided. 2. ??6 images acquired during localization and L5-S1 disc replacement. REPORT SIGNED BY DR. Evans Mccray Narrative 06/08/2023 1:44 PM CDT EXAM: XR C-ARM SPINE ?? DATE: 06/08/2023 9:33 AM CLINICAL DATA: L5-S1 Additional Data: None FLUOROSCOPY TIME: 34 seconds FINDINGS/ Procedure Note de Evans Cain MD - 06/08/2023 EXAM: XR C-ARM SPINE DATE: 06/08/2023 9:33 AM CLINICAL DATA: L5-S1 Additional Data: None FLUOROSCOPY TIME: 34 seconds FINDINGS/ IMPRESSION IMPRESSION: 1. Fluoroscopic assistance provided. 2. 6 images acquired during localization and L5-S1 disc replacement. REPORT SIGNED BY DR. Evans Mccray Vasyl Barrera MD XRAY ORDERABLE * (ABNORMAL) POCT Glucose Meter (06/08/2023 5:52 AM CDT) GLUCOSE WB METER 101(H) 60 - 100 mg/dL 06/08/2023 6:10 AM CDT [facility] Blood 06/08/2023 5:52 AM CDT 06/08/2023 6:10 AM CDT Vasyl Barrera MD LAB POINT OF CARE TEST RESULTS Performing Organization Address City/[facility]/ZIP Co de Phone Number [facility] [address] [place] [address] * hCG Urine (06/08/2023 5:42 AM CDT) HCG URINE Negative Negative 06/08/2023 5:50 AM CDT [facility] Urine URINE SPECIMEN OBTAINED BY CLEAN CATCH PROCEDURE / Unknown 06/08/2023 5:42 AM CDT 06/08/2023 5:44 AM CDT Avelino Taylor DO URINE ORDERABLE Performing Organization Address City/[facility]/ZIP Co de Phone Number [facility] [address] [place] [address] documented in this encounter Visit Diagnoses Diagnosis Lumbar radiculopathy- Primary Thoracic or lumbosacral neuritis or radiculitis, unspecified Lumbar radiculopathy Thoracic or lumbosacral neuritis or radiculitis, unspecified Sacroiliitis (HCC) Sacroiliitis, not elsewhere classified Primary hypertension Unspecified essential hypertension documented in this encounter Admitting Diagnoses Diagnosis Lumbar radiculopathy Thoracic or lumbosacral neuritis or radiculitis, unspecified documented in this encounter Administered Medications Inactive Administered Medications - up to 3 most recent administrations Medication Order MAR Action Action Date Dose Rate Site saline FLUSH syringe 10 mL 10 mL, Intravenous, EVERY 8 HOURS, First dose on Agueda 06/08/23 at 0600, Until Discontinued, Pre-Op Given 06/08/2023 6:24 AM CDT 10 mL acetaminophen (TYLENOL) rectal suppository 650 mg 650 mg, Rectal, EVERY 6 HOURS (NS), First dose on Mon06/08/23 at 1400, Until Discontinued, Post-Op acetaminophen (TYLENOL) tablet 1,000 mg 1,000 mg, oral, ONCE, 1 dose, On Mon06/08/23 at 0545, Pre-Op Given 06/08/2023 6:33 AM CDT 1,000 mg acetaminophen (TYLENOL) tablet 1,000 mg 1,000 mg, oral, EVERY 6 HOURS (NS), First dose on Agueda 06/08/23 at 1400, Until Discontinued, Post-Op Given 06/10/2023 7:43 AM CDT 1,000 mg Given 06/10/2023 2:38 AM CDT 1,000 mg Given 06/09/2023 7:41 PM CDT 1,000 mg ceFAZolin (Ancef) 2 g in sodium chloride 0.9 % 100 mL IV piggyback 2 g, Intravenous, EVERY 8 HOURS (NS), 2 doses, First dose on Mon06/08/23 at 1600, Last dose on Mon06/09/23 at 0000, Post-Op, Administer over 30 Minutes New Bag 06/09/2023 12:38 AM CDT 2 g 200 mL/hr New Bag 06/08/2023 3:37 PM CDT 2 g 200 mL/hr docusate sodium (COLACE) capsule 100 mg 100 mg, oral, TWICE A DAY, First dose on Agueda 06/08/23 at 1145, Until Discontinued, Post-Op Given 06/10/2023 7:44 AM CDT 100 mg Given 06/09/2023 7:41 PM CDT 100 mg Given 06/09/2023 7:44 AM CDT 100 mg fentaNYL (SUBLIMAZE) injection 25-50 mcg 25-50 mcg, Intravenous, EVERY 5 MINUTES NEEDED, 8 doses, Starting on Agueda 06/08/23 at 0947, Until Agueda 06/08/23 at 1129, Phase 1/2, ACUTE SURGICAL PAIN Given 06/08/2023 10:41 AM CDT 25 mcg Given 06/08/2023 10:15 AM CDT 50 mcg Given 06/08/2023 10:10 AM CDT 25 mcg gabapentin (NEURONTIN) capsule 600 mg 600 mg, oral, ONCE, 1 dose, On Agueda 06/08/23 at 0545, Pre-Op Given 06/08/2023 6:33 AM CDT 600 mg hydrALAZINE (APRESOLINE) injection 10 mg 10 mg, Intravenous, EVERY 6 HOURS NEEDED, Starting on Agueda 06/08/23 at 1235, Until 06/10/23 at 1808, for SBP GREATER THAN, >180 HYDROmorphone (DILAUDID) syringe 0.2-0.4 mg 0.2-0.4 mg, Intravenous, EVERY 5 MINUTES NEEDED, 5 doses, Starting on Agueda 06/08/23 at 0947, Until Agueda 06/08/23 at 1129, Phase 1/2, POST-ACUTE PAIN MANAGEMENT Given 06/08/2023 10:59 AM CDT 0.4 mg Given 06/08/2023 10:35 AM CDT 0.2 mg Given 06/08/2023 10:26 AM CDT 0.3 mg HYDROmorphone (DILAUDID) syringe 0.2-0.4 mg 0.2-0.4 mg, Intravenous, EVERY 4 HOURS NEEDED, Starting on Agueda 06/08/23 at 1130, Until 06/09/23 at 2335, Post-Op, Pain, when NOT taking PO Given 06/08/2023 10:14 PM CDT 0.4 mg Given 06/08/2023 3:29 PM CDT 0.4 mg HYDROmorphone (DILAUDID) syringe 0.2-0.8 mg 0.2-0.8 mg, Intravenous, EVERY 4 HOURS NEEDED, Starting on Mon06/09/23 at 2334, Until 06/10/23 at 0834, Post-Op, Pain, if oral opioid not effective or tolerated Given 06/09/2023 11:47 PM CDT 0.5 mg HYDROmorphone (DILAUDID) tablet 2-4 mg 2-4 mg, oral, EVERY 4 HOURS NEEDED, Starting on 06/09/23 at 1540, Until 06/09/23 at 2334, pain Given 06/09/2023 10:28 PM CDT 4 mg Given 06/09/2023 6:28 PM CDT 4 mg HYDROmorphone (DILAUDID) tablet 2-6 mg 2-6 mg, oral, EVERY 4 HOURS NEEDED, Starting on 06/09/23 at 2334, Until 06/10/23 at 1808, pain Given 06/10/2023 10:32 AM CDT 6 mg Given 06/10/2023 6:20 AM CDT 6 mg Given 06/10/2023 2:39 AM CDT 6 mg hydrOXYzine HCl (VISTARIL) injection 25 mg 25 mg, IntraMUSCULAR, ONCE NEEDED, MAY REPEAT X 1, 2 doses, Starting on Agueda 06/08/23 at 0947, Until Agueda 06/08/23 at 1129, Phase 1/2, for augmentation of narcotic based analgesia while in recovery area and unable to take PO. Not to be given within the past 6 hours. Given 06/08/2023 10:10 AM CDT 25 mg Righ t Deltoid hydrOXYzine pamoate (Vistaril) capsule 50 mg 50 mg, oral, EVERY 3 HOURS NEEDED, Starting on Agueda 06/08/23 at 1130, Until 06/10/23 at 1808, Post-Op, to enhance pain control of analgesics Given 06/10/2023 10:32 AM CDT 50 mg Given 06/10/2023 6:21 AM CDT 50 mg Given 06/10/2023 2:39 AM CDT 50 mg ketorolac (ToradoL) injection 15 mg 15 mg, Intravenous, EVERY 6 HOURS NEEDED, Starting on 06/09/23 at 2332, Until 06/10/23 at 1808, pain, Maximum duration of treatment is 5 days. Given 06/10/2023 7:43 AM CDT 15 mg Given 06/09/2023 11:46 PM CDT 15 mg lactated Ringers (LR) IV infusion at 25 mL/hr, Intravenous, CONTINUOUS, Starting on Agueda 06/08/23 at 0545, Until Agueda 06/08/23 at 1004, Pre-Op New Bag 06/08/2023 6:34 AM CDT 25 mL/hr lactated Ringers (LR) IV infusion at 50 mL/hr, Intravenous, CONTINUOUS, Starting on Agueda 06/08/23 at 1000, Until Agueda 06/08/23 at 1129, Phase 1 Rate Verify 06/08/2023 10:36 AM CDT 50 mL/hr lidocaine 1% injection (conc: 10 mg/mL) 0.1-0.3 mL 0.1-0.3 mL, Intradermal, NEEDED, Starting on Agueda 06/08/23 at 0536, Until Agueda 06/08/23 at 1004, Pre-Op, Local Anesthesia, IV start or restart Given 06/08/2023 6:24 AM CDT 0.1 mL Left Hand melatonin tablet 9 mg 9 mg, oral, AT BEDTIME, First dose on Mon06/09/23 at 2200, Until Discontinued Given 06/09/2023 10:28 PM CDT 9 mg methocarbamoL (ROBAXIN) tablet 750 mg 750 mg, oral, FOUR TIMES A DAY NEEDED, Starting on Agueda 06/08/23 at 1130, Until Mon06/09/23 at 0849, Post-Op, muscle spasm Given 06/09/2023 6:27 AM CDT 750 mg Given 06/08/2023 11:47 AM CDT 750 mg methocarbamoL (ROBAXIN) tablet 750 mg 750 mg, oral, FOUR TIMES A DAY, First dose (after last modification) on Mon06/09/23 at 1200, Until Discontinued, Post-Op Given 06/10/2023 7:43 AM CDT 750 mg Given 06/09/2023 10:28 PM CDT 750 mg Given 06/09/2023 6:28 PM CDT 750 mg ondansetron (ZOFRAN) disintegrating tablet 4 mg 4 mg, oral, EVERY 8 HOURS NEEDED, Starting on Agueda 06/08/23 at 1130, Until 06/10/23 at 1808, Post-Op, nausea & vomiting ondansetron (ZOFRAN) injection 4 mg 4 mg, Intravenous, EVERY 8 HOURS NEEDED, Starting on Agueda 06/08/23 at 1130, Until 06/10/23 at 1808, Post-Op, nausea & vomiting oxyCODONE (immediate release) (ROXICODONE) tablet 5-10 mg 5-10 mg, oral, EVERY 4 HOURS NEEDED, Starting on Agueda 06/08/23 at 1130, Until Mon06/09/23 at 1543, Post-Op, Pain, when taking PO Given 06/09/2023 2: 42 PM CDT 10 mg Given 06/09/2023 10:41 AM CDT 10 mg Given 06/09/2023 6:27 AM CDT 10 mg oxyCODONE (oxyCONTIN) extended release tablet 12 HR 10 mg 10 mg, oral, ONCE, 1 dose, On Agueda 06/08/23 at 0545, Pre-Op Given 06/08/2023 6:33 AM CDT 10 mg povidone-iodine 10% (BETADINE) solution 15 mL topical, ONCE, 1 dose, On Agueda 06/08/23 at 0545, Pre-Op Given 06/08/2023 6:34 AM CDT 15 mL documented in this encounter Active and Recently Administered Medications Times are shown in CDT. Scheduled Medication Order 06/08/2023 06/09/2023 06/10/2023 saline FLUSH syringe 10 mL (CANCELED) 10 mL, Intravenous, EVERY 8 HOURS, First dose on Agueda 06/08/23 at 0600, Until Discontinued, Pre-Op 0624 (Given - Provider: Micheline Hurd RN) acetaminophen (TYLENOL) rectal suppository 650 mg(Linked Group 1) 650 mg, Rectal, EVERY 6 HOURS (NS), First dose on Agueda 06/08/23 at 1400, Until Discontinued, Post-Op 1459 (See Alternative - Provider: Roselia Yi RN)2027 (See Alternative - Provider: Storm Carlson RN) 0217 (See Alternative - Provider: Dawn Nieves RN)0744 (See Alternative - Provider: Roselia Barber RN)1442 (See Alternative - Provider: Roselia Barber RN)194 (See Alternative - Provider: Laura Sifuentes RN) 0238 (See Alternative - Provider: Diana Beasley, ELENI)0743 (See Alternative - Provider: Roselia Barber RN) acetaminophen (TYLENOL) tablet 1,000 mg (COMPLETED) 1,000 mg, oral, ONCE, 1 dose, On Agueda 06/08/23 at 0545, Pre-Op 0633 (Given - Provider: Micheline Hurd RN) acetaminophen (TYLENOL) tablet 1,000 mg(Linked Group 1) 1,000 mg, oral, EVERY 6 HOURS (NS), First dose on Agueda 06/08/23 at 1400, Until Discontinued, Post-Op 1459 (Given - Provider: Roselia Yi RN)2028 (Given - Provider: Storm Carlson RN) 0217 (Given - Provider: Dawn Nieves, ELENI)0744 (Given - Provider: Roselia Barber RN)1442 (Given - Provider: Roselia Barber RN)194 (Given - Provider: Laura Sifuentes RN) 023 (Given - Provider: Diana Beasley, ELENI)0743 (Given - Provider: Roselia Barber RN) ceFAZolin (Ancef) 2 g in sodium chloride 0.9 % 100 mL IV piggyback (COMPLETED) 2 g, Intravenous, EVERY 8 HOURS (NS), 2 doses, First dose on Mon06/08/23 at 1600, Last dose on Mon06/09/23 at 0000, Post-Op, Administer over 30 Minutes 1537 (New Bag - Provider: Storm Carlson RN) 0038 (New Bag - Provider: Dawn Nieves RN) ceFAZolin (Ancef) 2 g in sterile water IV syringe (COMPLETED) Intravenous, ONCE ON INDUCTION, 1 dose, Starting on Agueda 06/08/23 at 0536, Until Discontinued, Intra-Op, Administer over 3 Minutes 0747 (New Bag - Provider: Jem Ferrari) docusate sodium (COLACE) capsule 100 mg 100 mg, oral, TWICE A DAY, First dose on Agueda 06/08/23 at 1145, Until Discontinued, Post-Op 1147 (Given - Provider: Roselia Yi RN)2028 (Given - Provider: Storm Carlson RN) 0744 (Given - Provider: Roselia Barber RN)194 (Given - Provider: Laura Sifuentes RN) 0744 (Given - Provider: Roselia Barber RN) gabapentin (NEURONTIN) capsule 600 mg (COMPLETED) 600 mg, oral, ONCE, 1 dose, On Agueda 06/08/23 at 0545, Pre-Op 0633 (Given - Provider: Micheline Hurd RN) melatonin tablet 9 mg 9 mg, oral, AT BEDTIME, First dose on Mon06/09/23 at 2200, Until Discontinued 222 (Given - Provider: Laura Sifuentes RN) methocarbamoL (ROBAXIN) tablet 750 mg 750 mg, oral, FOUR TIMES A DAY, First dose (after last modification) on Mon06/09/23 at 1200, Until Discontinued, Post-Op 1303 (Given - Provider: Roselia Barber RN)1828 (Given - Provider: Roselia Barber RN)2228 (Given - Provider: Laura Sifuentes RN) 0743 (Given - Provider: Roselia Barber RN) oxyCODONE (oxyCONTIN) extended release tablet 12 HR 10 mg (COMPLETED) 10 mg, oral, ONCE, 1 dose, On Agueda 06/08/23 at 0545, Pre-Op 0633 (Given - Provider: Micheline Hurd RN) povidone-iodine 10% (BETADINE) solution 15 mL (COMPLETED) topical, ONCE, 1 dose, On Agueda 06/08/23 at 0545, Pre-Op 0634 (Given - Provider: Micheline Hurd RN) Continuous Medication Order 06/08/2023 06/09/2023 06/10/2023 lactated Ringers (LR) IV infusion (CANCELED) at 25 mL/hr, Intravenous, CONTINUOUS, Starting on Agueda 06/08/23 at 0545, Until Agueda 06/08/23 at 1004, Pre-Op 0634 (New Bag - Provider: Micheline Hurd RN) lactated Ringers (LR) IV infusion (CANCELED) at 50 mL/hr, Intravenous, CONTINUOUS, Starting on Agueda 06/08/23 at 1000, Until Agueda 06/08/23 at 1129, Phase 1 1036 (Rate Verify - Provider: Lindsey Gonzalez RN) phenylephrine (ATIF-SYNEPHRINE) 32 mg in sodium chloride 0.9 % 100 mL IV infusion (conc: 0.32 mg/mL) for OR (CANCELED) 0-200 mcg/min (0-37.5 mL/hr), Intravenous, TITRATE, Starting on Agueda 06/08/23 at 0700, Until Agueda 06/08/23 at 1129, Titrate by 10 mcg/min if MAP is 60-65 and by 20 mcg/min if MAP is less than 60. Notify provider for rate greater than 180 mcg/min 0829 (New Bag - Provider: Jem Ferrari)0937 (Stopped - Provider: Jem Ferrari) PRN Medication Order 06/08/2023 06/09/2023 06/10/2023 alum-mag hydroxide-simethicone (MAALOX PLUS) suspension 15-30 mL 15-30 mL, oral, EVERY 6 HOURS NEEDED, Starting on Agueda 06/08/23 at 1130, Until 06/10/23 at 1808, Post-Op, indigestion D50W IV syringe 25-50 mL 25-50 mL, Intravenous, NEEDED, Starting on Agueda 06/08/23 at 1130, Until 06/10/23 at 1808, Post-Op, hypoglycemia, for fingerstick blood glucose less than 70 mg/dL D50W IV syringe 25-50 mL 25-50 mL, Intravenous, NEEDED, Starting on Agueda 06/08/23 at 1130, Until 06/10/23 at 1808, hypoglycemia fentaNYL (SUBLIMAZE) injection 25-50 mcg (CANCELED) 25-50 mcg, Intravenous, EVERY 5 MINUTES NEEDED, 8 doses, Starting on Agueda 06/08/23 at 0947, Until Agueda 06/08/23 at 1129, Phase 1/2, ACUTE SURGICAL PAIN 1010 (Given - Provider: Lindsey Gonzalez RN)1015 (Given - Provider: Lindsey Gonzalez RN)1041 (Given - Provider: Lindsey Gonzalez RN) glucagon, human recombinant (Glucagen) injection (conc: 1 mg/mL) 1 mg 1 mg, IntraMUSCULAR, EVERY 15 MINUTES NEEDED, 2 doses, Starting on Agueda 06/08/23 at 1130, Until 06/10/23 at 1808, for hypoglycemia hydrALAZINE (APRESOLINE) injection 10 mg 10 mg, Intravenous, EVERY 6 HOURS NEEDED, Starting on Agueda 06/08/23 at 1235, Until 06/10/23 at 1808, for SBP GREATER THAN, >180 HYDROmorphone (DILAUDID) syringe 0.2-0.4 mg (CANCELED) 0.2-0.4 mg, Intravenous, EVERY 5 MINUTES NEEDED, 5 doses, Starting on Agueda 06/08/23 at 0947, Until Agueda 06/08/23 at 1129, Phase 1/2, POST-ACUTE PAIN MANAGEMENT 1026 (Given - Provider: Lindsey Gonzalez RN)1035 (Given - Provider: Lindsey Gonzalez RN)1059 (Given - Provider: Lindsey Gonzalez RN) HYDROmorphone (DILAUDID) syringe 0.2-0.4 mg (CANCELED) 0.2-0.4 mg, Intravenous, EVERY 4 HOURS NEEDED, Starting on Agueda 06/08/23 at 1130, Until 06/09/23 at 2335, Post-Op, Pain, when NOT taking PO 1529 (Given - Provider: Storm Carlson RN)2214 (Given - Provider: Storm Carlson RN) HYDROmorphone (DILAUDID) syringe 0.2-0.8 mg (CANCELED) 0.2-0.8 mg, Intravenous, EVERY 4 HOURS NEEDED, Starting on Mon06/09/23 at 2334, Until 06/10/23 at 0834, Post-Op, Pain, if oral opioid not effective or tolerated 2347 (Given - Provider: Diana Beasley RN) HYDROmorphone (DILAUDID) tablet 2-4 mg (CANCELED) 2-4 mg, oral, EVERY 4 HOURS NEEDED, Starting on 06/09/23 at 1540, Until Mon06/09/23 at 2334, pain 1828 (Given - Provider: Roselia Barber RN)2228 (Given - Provider: Laura Sifuentes, ELENI) HYDROmorphone (DILAUDID) tablet 2-6 mg 2-6 mg, oral, EVERY 4 HOURS NEEDED, Starting on Mon06/09/23 at 2334, Until 06/10/23 at 1808, pain 0239 (Given - Provider: Diana Beasley RN)0620 (Given - Provider: Diana Beasley RN)1032 (Given - Provider: Roselia Barber RN) hydrOXYzine HCl (VISTARIL) injection 25 mg (CANCELED)(Linked Group 2) 25 mg, IntraMUSCULAR, ONCE NEEDED, MAY REPEAT X 1, 2 doses, Starting on Agueda 06/08/23 at 0947, Until Agueda 06/08/23 at 1129, Phase 1/2, for augmentation of narcotic based analgesia while in recovery area and unable to take PO. Not to be given within the past 6 hours. 1010 (Given - Provider: Lindsey Gonzalez RN) hydrOXYzine pamoate (Vistaril) capsule 50 mg 50 mg, oral, EVERY 3 HOURS NEEDED, Starting on Agueda 06/08/23 at 1130, Until 06/10/23 at 1808, Post-Op, to enhance pain control of analgesics 1530 (Given - Provider: Storm Carlson RN)2030 (Given - Provider: Storm Carlson RN) 0043 (Given - Provider: Dawn Nieves RN)0627 (Given - Provider: Dawn Nieves RN)1041 (Given - Provider: Roselia Barber RN)1442 (Given - Provider: Roselia Barber RN)2228 (Given - Provider: Laura Sifuentes, ELENI) 0239 (Given - Provider: Diana Beasley RN)0621 (Given - Provider: Diana Beasley RN)1032 (Given - Provider: Roselia Barber RN) ketorolac (ToradoL) injection 15 mg 15 mg, Intravenous, EVERY 6 HOURS NEEDED, Starting on Mon06/09/23 at 2332, Until 06/10/23 at 1808, pain, Maximum duration of treatment is 5 days. 2346 (Given - Provider: Diana Beasley RN) 0743 (Given - Provider: Roselia Barber RN) lidocaine 1% injection (conc: 10 mg/mL) 0.1-0.3 mL (CANCELED) 0.1-0.3 mL, Intradermal, NEEDED, Starting on Agueda 06/08/23 at 0536, Until Agueda 06/08/23 at 1004, Pre-Op, Local Anesthesia, IV start or restart 0624 (Given - Provider: Micheline Hurd RN) methocarbamoL (ROBAXIN) tablet 750 mg (CANCELED) 750 mg, oral, FOUR TIMES A DAY NEEDED, Starting on Agueda 06/08/23 at 1130, Until Mon06/09/23 at 0849, Post-Op, muscle spasm 1147 (Given - Provider: Roselia Yi RN) 0627 (Given - Provider: Dawn Nieves RN) naloxone (NARCAN) injection 0.1 mg 0.1 mg, Intravenous, EVERY 1 MINUTE PRN, Starting on Agueda 06/08/23 at 1130, Until 06/10/23 at 1808, Post-Op, Opiate Reversal ondansetron (ZOFRAN) disintegrating tablet 4 mg(Linked Group 3) 4 mg, oral, EVERY 8 HOURS NEEDED, Starting on Agueda 06/08/23 at 1130, Until 06/10/23 at 1808, Post-Op, nausea & vomiting ondansetron (ZOFRAN) injection 4 mg(Linked Group 3) 4 mg, Intravenous, EVERY 8 HOURS NEEDED, Starting on Agueda 06/08/23 at 1130, Until 06/10/23 at 1808, Post-Op, nausea & vomiting oxyCODONE (immediate release) (ROXICODONE) tablet 5-10 mg (CANCELED) 5-10 mg, oral, EVERY 4 HOURS NEEDED, Starting on Agueda 06/08/23 at 1130, Until 06/09/23 at 1543, Post-Op, Pain, when taking PO 1252 (Given - Provider: Roselia Yi RN)1718 (Given - Provider: Storm Carlson RN)2129 (Given - Provider: Storm Carlson RN) 0043 (Given - Provider: Dawn Nieves, ELENI)0627 (Given - Provider: Dawn Nieves RN)1041 (Given - Provider: Roselia Barber, ELENI)1442 (Given - Provider: Roselia Barber, ELENI) thrombin 5,000 unit topical solution (CANCELED) INTRA-PROCEDURE NEEDED, Starting on Agueda 06/08/23 at 0935, Until Agueda 06/08/23 at 1004, Intra-Op 0935 (Given - Provider: Vasyl Barrera MD) Linked Groups Order Group 1: acetaminophen (TYLENOL) tablet 1,000 mgJump to med 1,000 mg, oral, EVERY 6 HOURS (NS), First dose on Agueda 06/08/23 at 1400, Until Discontinued, Post-Op Or acetaminophen (TYLENOL) rectal suppository 650 mgJump to med 650 mg, Rectal, EVERY 6 HOURS (NS), First dose on Agueda 06/08/23 at 1400, Until Discontinued, Post-Op Group 2: hydrOXYzine pamoate (Vistaril) capsule 25 mg (CANCELED) 25 mg, oral, ONCE NEEDED, MAY REPEAT X 1, 2 doses, Starting on Agueda 06/08/23 at 0947, Until Agueda 06/08/23 at 1129, Phase 1/2, for augmentation of narcotic based analgesia while in recovery area. Not to be used if given within the past 6 hours. Or hydrOXYzine HCl (VISTARIL) injection 25 mg (CANCELED)Jump to med 25 mg, IntraMUSCULAR, ONCE NEEDED, MAY REPEAT X 1, 2 doses, Starting on Agueda 06/08/23 at 0947, Until Agueda 06/08/23 at 1129, Phase 1/2, for augmentation of narcotic based analgesia while in recovery area and unable to take PO. Not to be given within the past 6 hours. Group 3: ondansetron (ZOFRAN) injection 4 mgJump to med 4 mg, Intravenous, EVERY 8 HOURS NEEDED, Starting on Agueda 06/08/23 at 1130, Until 06/10/23 at 1808, Post-Op, nausea & vomiting Or ondansetron (ZOFRAN) disintegrating tablet 4 mgJump to med 4 mg, oral, EVERY 8 HOURS NEEDED, Starting on Agueda 06/08/23 at 1130, Until 06/10/23 at 1808, Post-Op, nausea & vomiting documented in this encounter Care Teams Outreach Representative Relationship Specialty Start Date End Date Yulisa Contreras PA-C [address] [place] [address] PCP - General Physician Sr. Pricing Analyst 01/20/23 [facility] [facility] [address] [place] [address] PCP - Primary Care Clinic 05/29/23 documented as of this encounter
--- OUTSIDE RECORDS SUMMARY | 2023-09-13 18:05 | XMS_ITS | Encounter Summary ---
Author Name Unknown Organization [facility] Address [address] [place] [address] Care Team Providers Care Horse Rancher Name Role Phone Yulisa Contreras PA-C Primary Care Provider [phone] [facility]- Unav ailable Encounter Details Date Type Department Care Team (Latest Contact Info) Description 06/29/2023 Travel Social History Tobacco Use Types Packs/Day Years Used Date Smoking Tobacco: Former Cigarettes Smokeless Tobacco: Never Alcohol Use Standard Drinks/Week Comments Not Currently 0 (1 standard drink = 0.6 oz pur e alcohol) Sex and Gender Information Value Date Recorded Sex Assigned at Not on file Gender Identity Not on file Sexual Orientation Not on file documented as of this encounter Plan of Treatment Not on file documented as of this encounter Visit Diagnoses Not on filedocumented in this encounter Care Teams 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
--- OUTSIDE RECORDS SUMMARY | 2023-09-13 18:05 | XMS_ITS | Referral Summary ---
Author Name Unknown Organization [facility] Address [address] [place] [address] Care Team Providers Care Dry Boss Name Role Phone Yulisa Contreras PA-C Primary Care Provider [facility]- Unav ailable Encounters Date Type Department Care Team Description 08/07/2023 Order-Scan [place] [facility] (an [facility] of [facility]) [address] [place] [phone] Reported, Patient 08/04/2023 Travel 08/04/2023 10:00 AM BUSINESS TAXES SPECIALIST Office Visit [place] [facility] (an affiliate of [facility]) [address] [place] [address] Vincent Michel PA-C Postoperative state (Primary Dx) 06/29/2023 [facility]Scan [place] [facility] (an [facility]) [address] [place] [phone] Reported, Patient 06/29/2023 Travel 06/29/2023 9:15 AM CDT Office Visit [place] [facility] (an [facility]) [address] [place] [address] Marquez Rosenthal PA-C Lumbar spine pain (Primary Dx) from Last 3 Months Allergies No known active allergies Medications Medication [...] Overview: Added automatically from request for surgery [id number] (spontaneous vaginal delivery) 09/27/2011 Social History Tobacco Use Types Packs/Day Years [...] 06/29/2023 9:11 AM CDT Plan of Treatment Not on file Medical Devices Implanted Type Area Commercial Pilot Device Identifier Shelf Expiration Date Model / Serial / Lot Activ L Pe-Inlay 8.5mm Implanted:Qty: 1 on 06/08/2023 by Vasyl Barrera MD at [facility] N/A: Spine Lumbar [employer] 06/28/2026 [id number] / / [id number] Procedures Procedure Name Priority Date/Time Associated Diagnosis Comments SCANNED RADIOLOGY Routine 08/04/2023 9:19 AM BUSINESS TAXES SPECIALIST SCANNED RADIOLOGY Routine 06/29/2023 11:36 AM CDT from Last 3 Months Results * SCANNED RADIOLOGY (08/04/2023 9:19 AM BUSINESS TAXES SPECIALIST) Only the most recent of2 resultswithin the time period is included. Anatomical Region Laterality Modality Other Patient Reported XRAY ORDERABLE from Last 3 Months Advance Directives For more information, please contact: [phone] Latest Code Status on File Code Status Date Activated Date Inactivated Comments Full Code 06/08/2023 12:45 PM 06/10/2023 6:13 PM Question Answer Comments How was code status determined? Patient Code Status History Code Status Date Activated Date Inactivated Comments Full Code 06/08/2023 5:36 AM 06/08/2023 10:04 AM Question Answer Comments How was code status determined? Previous Documen [facility] Care Teams Dry Boss Relationship Specialty Start Date End Date Yulisa Contreras PA-C [address] [place] [address] PCP - General Physician Wall Insulation Sprayer 01/20/23 [facility]- [address], [place] [address] PCP - Primary Care Clinic 05/29/23
--- OUTSIDE RECORDS SUMMARY | 2023-09-13 18:05 | XMS_ITS | Encounter Summary ---
Author Name Unknown Organization [facility] Address [address] [place] [address] Care Team Providers Care Ballistics Teacher Name Role Phone Yulisa Contreras PA-C Primary Care Provider [phone] [facility]- Unav ailable Encounter Details Date Type Department Care Team (Late st Contact Info) Description 08/07/2023 Order-Scan [place] [facility] [place] [facility]) [address] [place] [address] Reported, Patient Social History Tobacco Use Types Packs/Day Years [...] on file documented as of this encounter Procedures Procedure Name Priority Date/Time Associated Diagnosis Comments SCANNED RADIOLOGY Routine 08/04/2023 9:19 AM TRIM LINE WORKER documented in this encounter Results * SCANNED RADIOLOGY (08/04/2023 9:19 AM TRIM LINE WORKER) Anatomical Region Laterality Modality Other Patient Reported XRAY ORDERABLE documented in this encounter Visit Diagnoses Not on filedocumented in this encounter Care Teams Ballistics Teacher Relationship Specialty Start Date End Date Yulisa Contreras PA-C [address] [place] [address] PCP - General Physician Aircraft Launch And Recovery Technician 01/20/23 [facility]- [address] [place] [address] PCP - Primary Care Clinic 05/29/23 documented as of this encounter
--- OUTSIDE RECORDS SUMMARY | 2023-09-13 18:05 | XMS_ITS | Encounter Summary ---
Author Name Unknown Organization [facility] Address [address] [place] [address] Care Team Providers Care Home Health Attendant Name Role Phone Yulisa Contreras PA-C Primary Care Provider [phone] [facility]- Unav ailable Reason for Referral * (Routine) - Open Specialty Diagnoses / Procedures Referred By Ezequiel amezquita Referred To Contact Diagnoses Postoperative state Procedures XR SPINE LUMBAR ROUTINE Vincent Michel PA-C [address] [address] Referral ID Status Reason Start Date Expiration Date Visits Re quested Visits Authorized [id number] Open 10/19/2023 1 1 LEAF LABORER Reason for Visit * Reason Comments Post op check Encounter Details Date Type Department Care Team (Latest Contact Info) Description 08/04/2023 10:00 AM GOLD LEAF LABORER Office Visit [facility] [facility]) [address] [place] [address] Vincent Michel PA-C [address] [place] [address] Postoperative state (Primary Dx) Social History Tobacco Use Types Packs/Day Years Used Date Smoking Tobacco: Former Cigarettes Smokeless Tobacco: Never Alcohol Use Standard Drinks/Week Comments Not Currently 0 (1 standard drink = 0.6 oz pur e alcohol) Sex and Gender Information Value Date Recorded Sex Assigned at Not on file Gender Identity Not on file Sexual Orientation Not on file documented as of this encounter Progress Notes * Vincent Michel PA-C - 08/04/2023 10:00 AM CST CHIEF COMPLAINT: Postop recheck HISTORY OF PRESENT ILLNESS: Carolina Garrido is a 48 y.o. female here today for evaluation and postoperative recheck. We are now approximately 2 months status post L5-S1 Total Disc Replacement (DOS: 06/08/23) performed byDr. Vasyl Barrera. She is doing well postoperatively. Her symptoms continue to show signs of improvement. There are no new problems or major changes since our last encounter. Activity level is increasing at a reasonable rate. There have been no problems with surgical incisions. Sleeping and diet are adequate. She is happy with the results thus far. [...] reviewed and verified with the patient. OBJECTIVE: There were no vitals filed for this visit. GENERAL: Patient is alert and oriented x3 and appears to be in a mild amount of discomfort. Patientis cooperative and polite throughout the interview. EXTREMITIES: Symmetrical without obvious deformities. GAIT: Gait exam is normal. NEUROLOGICAL: Motor and sensory examinations in the bilateral lower extremities show no acute negative changes. INCISION: Surgical wound healing addressed. No concerns for erythema, warmth, swelling or excessive/unexpected drainage. Skin closure accessories were removed where appropriate. Imaging & Other Tests: The patient did have imaging prior to this appointment which I reviewed myself; I discussed the findings with the patient. 08/04/23 - XR Lumbar Spine - [facility] The impression is: The instrumentation is in appropriate placement without any evidence of hardwarebreakdown or loosening. The interbody grafts are in good position and there is significant bone graft material throughout for fusion process. ASSESSMENT 1. Approximately 2 months status post L5-S1 Total Disc Replacement (DOS: 06/08/23) PLAN: 1. I had a long talk with Carolina Garrido today regarding the diagnosis and treatment recommendations. We talked about activity restrictions and modifications. We also discussed medication management and wound care measures going forward. 2. Due to her current condition and response to treatment thus far, I recommend that she focus on conservative care going forward. Currently there is no indication for additional imaging studies or interventional treatment (injections or surgical decision-making). Treatment goals in this case wouldbe directed towards working on ambulation, light stretching, rest, ice/heat application, intermittent OTC medication as needed for soreness, and activity modification (avoiding excessive and/or repetitive bending and twisting, and avoiding heavy lifting). Physical therapy could be considered if patient is interested. Symptoms should stabilize/improve with more time and conservative care. If signs/symptoms persist or worsen, or if neurologic deficit became apparent, then we would reconsider the above. 3. Workability: updated work slip printed today. 4. Medication changes: na. She will follow up in 8-12 weeks with xrays. At the end of our visit Carolina Garrido understands the current diagnosis and future treatment plan, and questions were answered satisfactorily. I also asked if there are any other questions or concerns otherwise, that she please call back to the office; understanding of this was expressed REMOTE TELESCRIBE ATTESTATION: IDerick am serving as a remote telescribe to document services personally performed by Vincetn Michel PA-C, and have constructed this note based upon discussion of the services provided and the practitioner's statements to me. I attest that through the duration of documentation services, I remained in a HIPAA compliant location. All documentation has been reviewed by the aforementioned provider. PROVIDER ATTESTATION: Vincent Zabala PA-C attest the above information is a true representation of the patient encounter. The information in this document, created by the medical telescribe for me, accurately reflects the services I personally performed and the decisions made by me. I have reviewed this document and have made the final edit(s). Authenticated by Vincent Michel PA-C on 08/04/23 at 4:11 PM. LEAF LABORER * Maury Monroy - 08/04/2023 10:00 AM CST Reason for visit - Post-op: 06/08/23 Artificial disc replacement L5-S1 Symptoms - NT when laying down-left side of Hip and radiates down left leg. Images/Location - 2VC 08/04/23 @ [facility] Changes in health history since last visit - NT left side of hip/leg Recent Injections - None following surgery Current PT - None since surgery Current pain meds - Tylenol Pain Score - 0/10 Any major falls in the last year - no Did the fall(s) result in injury - no Is the patient at risk for falls - no Is a Disability or Workability Form needed - yes Current RTW date - Maury Monroy CMA LEAF LABORER documented in this encounter Miscellaneous Notes * Addendum Note - Maury Monroy - 08/04/2023 10:00 AM CSTAddended by: MAURY MONROY on: 08/04/2023 10:49 AM Modules accepted: Orders LEAF LABORER documented in this encounter Plan of Treatment Scheduled Orders Name Type Priority Associated Diagnoses Orde r Schedule XR SPINE LUMBAR ROUTINE Imaging Routine Postoperative state Expected: 10/19/2023 (Approximate), Expires: 11/03/2023 documented as of this encounter Visit Diagnoses Diagnosis Postoperative state- Primary Other postprocedural status documented in this encounter Care Teams Home Health Attendant Relationship Specialty Start Date End Date Yulisa Contreras PA-C [address] [place] [address] PCP - General Physician Jr. Java Developer 01/20/23 [facility]- [address] [place] [address] PCP - Primary Care Clinic 05/29/23 documented as of this encounter
--- OUTSIDE RECORDS SUMMARY | 2023-09-13 18:05 | XMS_ITS | Encounter Summary ---
Author Name Unknown Organization [facility] Address [address] [place] [address] Care Team Providers Care Line Producer Name Role Phone Yulisa Contreras PA-C Primary Care Provider [phone] [facility]- Unav ailable Encounter Details Date Type Department Care Team (Late st Contact Info) Description 06/29/2023 Order-Scan [place] [facility] ([facility]) [address] [place] [address] Reported, Patient Social History Tobacco Use Types [...] Date/Time Associated Diagnosis Comments SCANNED RADIOLOGY Routine 06/29/2023 11:36 AM CDT documented in this encounter Results * SCANNED RADIOLOGY (06/29/2023 11:36 AM CDT) Anatomical Region Laterality Modality Other Patient Reported XRAY ORDERABLE documented in this encounter Visit Diagnoses Not on filedocumented in this encounter Care Teams Line Producer Relationship Specialty Start Date End Date Yulisa Contreras PA-C [address] [place] [address] PCP - General Physician Building Construction Inspector 01/20/[address] [facility]- [address] [place] [address] PCP - Primary Care Clinic 05/29/23 documented as of this encounter
--- OUTSIDE RECORDS SUMMARY | 2023-09-13 18:05 | XMS_ITS | Encounter Summary ---
Author Name Unknown Organization [facility] Address [address] [place] [address] Care Team Providers Care Senior Chemical Engineer Name Role Phone Yulisa Contreras PA-C Primary Care Provider [phone] [facility]- Unav ailable Encounter Details Date Type Department Care Team (Latest Contact Info) Description 08/04/2023 Travel Social History Tobacco Use Types Packs/Day [...] on filedocumented in this encounter Care Teams Senior Chemical Engineer Relationship Specialty Start Date End Date Yulisa Contreras PA-C [address] [place] [address] PCP - General Physician [employer] Maintenance Worker 01/20/23 [facility]- [address] [place] [address] PCP - Primary Care Clinic 05/29/23 documented as of this encounter
--- OUTSIDE RECORDS SUMMARY | 2023-09-13 18:06 | XMS_ITS | Continuity of Care Document ---
Author Name Unknown Organization [facility] Address [address] [address] [place] [address] Care Team Providers Care Dulite Machine Bluer Name Role Phone [place], [place] Unavailable Unav ailable Procedures Procedure Date Colono Advance Directives Directive Yes / No Effective Date File Name No Information Encounters Encounter Description Practice Location Reason(s) For Visit Diagnoses Date Provider Providers Copied on Encounter [facility], [address] [address], [place], [place], [id number], [place] [facility] No Information [facility]. [address] [address], [place], [place], [id number], . tel:[phone] Referring Provider: Iris Oliver MD, [address] [place] [address], [address]. tel:[phone] Family History Family Member Type Diagnosis Age At Onset No Information Payers Payer name Insurance type Covered republican ID Authoriza tion(s) [employer] [id number] Social History Type Description Quantity Date Captured Comments Sex Female Smoking Status No Information Chief Complaint And Reason For Visit No Information Reason For Referral Reason For Referral No Information History Of Present Illness Encounter Date Complaint History Of Prese nt Illness No Information Functional Status Date Functional Assessmen t No Information Instructions Date Instruction Additional Infor mation No Information Assessments Type Assessment Date No Information Patient Care Teams Name Effective Dates (start - stop) Status Members No Information
--- OUTSIDE RECORDS SUMMARY | 2023-09-13 18:06 | XMS_ITS | Encounter Summary ---
Author Name Unknown Organization [facility] Address [address] [place] [address] Care Team Providers Care Seamer Operator Name Role Phone Yulisa Contreras PA-C Primary Care Provider [facility]- Unav ailable Encounter Details Date Type Department Care Team (Latest Contact Info) Description 06/08/2023 Travel Social History Tobacco Use Types Packs/Day [...] on filedocumented in this encounter Care Teams Seamer Operator Relationship Specialty Start Date End Date Yulisa Contreras PA-C [address] [place] [address] PCP - General Physician Reproduction Production Manager 01/20/[address] [facility]- [address] [place] [address] PCP - Primary Care Clinic 05/29/23 documented as of this encounter
--- OUTSIDE RECORDS SUMMARY | 2023-09-13 18:06 | XMS_ITS | Encounter Summary ---
Author Name Unknown Organization [facility] Address [address] [place] [address] Care Team Providers Care Warp Spooler Name Role Phone Yulisa Cnotreras PA-C Primary Care Provider [phone] Yulisa Contreras PA-C Unavailable [phone] Encounter Details Date Type Department Care Team (Late st Contact Info) Description 05/16/2023 Order-Scan [place] [facility] ([facility]) [address] [place] [address] Reported, Patient Social History Tobacco Use Types Packs/Day Years Used Date Smoking Tobacco: Never Smokeless Tobacco: Never Sex and Gender Information Value Date Recorded Sex Assigned at Not on file Gender Identity Not on file Sexual Orientation Not on file documented as of this encounter Plan of Treatment Not on file documented as of this encounter Procedures Procedure Name Priority Date/Time Associated Diagnosis Comments SCANNED RADIOLOGY Routine 05/10/2023 8:51 AM CDT documented in this encounter Results * SCANNED RADIOLOGY (05/10/2023 8:51 AM CDT) Anatomical Region Laterality Modality Other Patient Reported XRAY ORDERABLE documented in this encounter Visit Diagnoses Not on filedocumented in this encounter Care Teams Warp Spooler Relationship Specialty Start Date End Date Yulisa Contreras PA-C [address] [place] [address] PCP - General Physician Atg Architect 01/20/23 Yulisa Contreras PA-C [address] [place] [address] PCP - Primary Care Clinic Physician Atg Architect 01/20/23 05/28/23 documented as of this encounter
--- OUTSIDE RECORDS SUMMARY | 2023-09-13 18:06 | XMS_ITS | Encounter Summary ---
Author Name Unknown Organization [facility] Address [address] [place] [address] Care Team Providers Care Commercial Light Fixture Assembler Name Role Phone Yulisa Contreras PA-C Primary Care Provider [phone] 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] Procedures LUMBAR SPINE FUSION,ANTER NEIL* IA TOTAL DISC ARTHRP ANT SINGLE INTERSPACE LUMBAR ARTIFICIAL DISC REPLACEMENT L5-S1 EXPOSURE: LUMBAR Referral ID Status Reason Start Date Expiration Date Visits Re quested Visits Authorized [id number] 1 1 Encounter Details Date Type Department Care Team (Late st Contact Info) Description 06/08/2023 6:50 AM CDT - 06/08/2023 9:00 AM CDT Surgery [facility] Operating Room [address] [place] [id number] Vasyl Barrera MD [address] [address] ARTIFICIAL DISC REPLACEMENT L5-S1 Surgery Details Date/Time Status Location OR Service Patient Class Case Class Case Type Trauma Case? 06/08/23 6:50 AM Posted NMR ORS 17 Orthopedic Admit Following Surgery Panel 1 Procedure LRB Anes Op Region Wound Class Comments ARTIFICIAL DISC REPLACEMENT L5-S1 N/A General Spine, Lumbar Clean (I) Panel 2 Procedure LRB Anes Op Region Wound Class Comments EXPOSURE: LUMBAR Bilateral General Abdomen Clean (I) Surgeon Surgeon Role Service Panel Vasyl Barrera MD Primary Orthopedic 1 Orville Vickers MD Primary Cardiothoracic 2 documented in this encounter Social History Tobacco Use Types Packs/Day Years [...] Sign Reading Time Taken Comments Blood Pressure 152/89 06/08/2023 5:45 AM CDT Pulse 82 06/08/2023 5:45 AM CDT Temperature 36.7 ??C (98 ??F) 06/08/2023 5:45 AM CDT Respiratory Rate 16 06/08/2023 5:45 AM CDT Oxygen Saturation 98% 06/08/2023 5:45 AM CDT Inhaled Oxygen Concentration - - Weight 103.4 kg (228 lb) 06/06/2023 11:25 AM CDT Height 165.1 cm (5' 5) 06/06/2023 11:25 AM CDT Body Mass Index 42.04 06/08/2023 11:31 AM CDT documented in this encounter Discharge Summaries * Jarett Fernandez PA-C - 06/10/2023 9:22 AM CDT HOSPITAL DISCHARGE SUMMARY Patient Name: Carolina Garrido Date of : 1975? Age: 48 y.o.? ? Primary Physician: Yulisa Contreras PA-C? ? Admission Date: 06/08/2023? Discharge Date: 06/10/2022 She will be discharged from [facility] to home. PRINCIPAL DIAGNOSIS CAUSING ADMISSION: Displacement of lumbar intervertebral disc without myelopathy [M51.26]? 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 Plan: - Continue to hold home hydrochlorothiazide in the setting of normal blood pressure - As needed IV hydralazine for sustained SBP >180 CAMILA CPAP has been prescribed to the patient patient but she has not yet started using it. CPAP was offered during this admission with the patient declined. Plan: - Continue to monitor Insomnia METAL FABRICATOR APPRENTICE melatonin. Plan: - Continue home melatonin CODE STATUS: Full Code DVT prophylaxis: Per primary team GI prophylaxis: None Occupational Health Nurse Manager Type Used: None DISPOSITION: Anticipated date of [...] Progression Note Type: Shift to shift summary [id number] Length of stay: 1 days Code Status: [...] Progression Note Type: Shift to shift summary [id number] Length of stay: 1 days Code Status: [...] Ashlee Felipe - 06/09/2023 11:48 AM CDT [facility] Rx: Marquez Rosenthal PA-C/CLIFTONO Dx: Displacement of lumbar intervertebral disc without myelopathy [M51.26] Procedure(s), Vasyl Barrera MD: ARTIFICIAL DISC REPLACEMENT L5-S1 POD#1 Pt was seen in her [facility] room A787-01 this AM for f/u of her [place] LSO, which was fit immediate post-op 06/08. [...] Ann to address. Pt alsounderstands to contact [facility] directly w/any questions or concerns after d/c from [facility]. Will continue to follow peripherally until d/c. Please call our office w/any questions or concerns in the mean time. Thank you! Ashlee Felipe HEAD OF MARKETING ADOMETRY * Mai Watson, ELENI - 06/09/2023 10:00 AM CDT [facility] POD #1 - Anterior spine [...] Vickers. 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 Plan: - Continue to hold home hydrochlorothiazide in the setting of normal blood pressure - As needed IV hydralazine for sustained SBP >180 CAMILA CPAP has been prescribed to the patient patient but she has not yet started using it. CPAP was offered during this admission with the patient declined. Plan: - Continue to monitor Insomnia METAL FABRICATOR APPRENTICE melatonin. Plan: - Continue home melatonin CODE STATUS: Full Code DVT prophylaxis: Per primary team GI prophylaxis: None Occupational Health Nurse Manager Type Used: None DISPOSITION: Anticipated date of [...] Ashlee Felipe - 06/08/2023 12:14 PM CDT [facility]otics & Prosthetics Rx: Marquez Rosenthal PA-C/LSO Dx: Displacement of lumbar intervertebral disc without myelopathy [M51.26] Procedure(s), Vasyl Barrera MD: ARTIFICIAL DISC REPLACEMENT L5-S1 POD#0 Pt was seen in the [facility] PACU (bay 16) earlier today for sizing of [place] LSO post- op. Pt was sized w/LSO & it was left bedside to be transferred to floor w/pt for use later today if needed. No education provided at this time. Will f/u on 06/09/2023 to ensure pt's comfort & provide education on LSO. Please call our office w/any questions or concerns in the mean time. Thank you! Ashlee Felipe HEAD OF MARKETING ADOMETRY * Roselia Yi RN - 06/08/2023 11:37 AM CDT P. Admission A. Condition on Admit: alert. Patient/Family Concerns: Patient expressed concern about pain relief . I. Initial Interventions included: notified MD of patient arrival. Orientation to Unit: Patient oriented to how to call for help, name of assigned grounds caretaker, initialphysician orders, hourly rounding procedures, unit and plan of care. R. Patient expressed understanding of information.. 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 Prior Level of Functional [...] None AM-PAC Daily Activity Raw Score: 21 AM-[facility] Daily Activity CMS 0-100% Score: 32.79 AM-PAC Daily Activity t-Scale Score: 44.27 The following scores are predictive of discharge disposition during acute hospitalization: Home= 20.1; Home with Home Health= 17.9; TCU=14; IRF=13.6; LTACH=11.5 Please refer to narrative for assessment of functional performance and discharge recommendations asscores may not always reflect mobility, cognitive aspects of performance or instrumental activitiesof daily living (IADLs) CURRENT ADL/IADL STATUS Current ADL Status Equipment Provided: Mechanism Assembler, Sock aid, Long-handled shoe horn, Long-handled sponge, [...] States will be home with her for / supervision/support over next few weeks Prior Level [...] steps to enter home. Step to pattern. [facility] AM-PAC 6-Clicks Turning over in bed (including [...] steps with a railing: Minimum/contact guard/standby assist AM-[facility] 6 Clicks: Mobility Total Score: 18 The [...] CONSULT NOTE Patient Name: Carolina Garrido Address: [address] [place] [address] Age:48 y.o. Sex: female Admission Date/Time: 06/08/2023 5:29 AM Requesting Physician: Dr. Barrera [facility] Attending Physician: aVsyl Barrera MD I was asked to see [...] 20 minutes Nati Smith PA-C , TICO [facility] Medicine Associated attestation - Luis M [...] this patient along with the NEIL providing [id number] participation in the evaluation and management. I [...] home with and children. Works fulltime as [employer] at [employer]. Off work for 6 weeks. Support Systems: [...] TCU or home care services. No DME METAL FABRICATOR APPRENTICE. Aquilino will drive her home on discharge. Used OP PT METAL FABRICATOR APPRENTICE, keen to resume PT with her. Assessed for discharge needs. Patient will likely discharge to home with no needs identified. Care management will continue to follow. Lala Villa RN, [facility], [facility] Float Afterschool 06/09/2023 9:33 AM Secure chat: Rena Villa [...] Vickers MD - 06/08/2023 5:34 PM CDT [facility] VASCULAR SURGERY OPERATIVE REPORT DATE [...] CDT Name: Carolina Garrido : 1975 Hospital: [facility] POSTOPERATIVE / POSTPROCEDURE NOTE - IMMEDIATE : Preprocedure Diagnosis: Displacement of lumbar intervertebral disc without myelopathy [M51.26] Postprocedure Diagnosis: same Surgeon(s)/Proceduralist(s) and Assistants (if any): Surgeon: Vasyl Barrera MD Journeyman Plumber: Marquez Rosenthal PA-C Surgeon(s): Vasyl Barrera MD Lee, Marlon A, MD @[facility]@ Anesthesiologist: Faisal Reese MD SUBWAY REPAIR SUPERVISOR: Lisa Quinn APRN, SUBWAY REPAIR SUPERVISOR; Tawanda Hi APRN, CRISTHIAN SRNA: Jem Ferrari Procedure(s): Procedure(s): ARTIFICIAL DISC REPLACEMENT L5-S1 (N/A) EXPOSURE: LUMBAR (Bilateral) Anesthesia: GETA Procedure(s) findings: Above, as expected. Specimen(s) removed: none sent (EBL) Estimated blood loss (ml): 25cc Complications: none Disposition: transferred to recovery in stable condition. Marquez Rosenthal PA-C [facility] [phone] Indications: I was asked by Vasyl Barrera MD to assist with surgery. I positioned and prepped the patient. I retracted soft tissue for operative exposure. I suctioned fluids. I provided traction for dissection. I helped to ligate blood vessels. I helped Vasyl Barrera MD identify and protect important structures. I sutured and bandaged the incision. The procedure was medically necessary for an purchasing administrative assistant because Vasyl Barrera MD needed the [...] 06/08/2023 8:05 AM CDT Carolina Garrido 1975 [id number] DATE OF OPERATIVE PROCEDURE: 06/08/2023 Attending: Vasyl Barrera MD CO-SURGEON Orville Vickers. ALPINE PATROLLER Marquez Rosenthal PA-C PREOPERATIVE DIAGNOSES 1. Severe [...] rasps were utilized to create a radical [id number] diskectomy at the L5-S1 segment. Excellent disk [...] preoperative neurologic examination, was cardiovascularly intact throughout. [facility] PAC provided assistance with preoperative positioning, prepping, and draping of the patient. The purchasing administrative assistant provided vital operative assistance with retraction using instruments best providing the necessary exposure and visualization for the case, manipulation of tissues to achieve hemostasis, suction for visualization and assisted in wound closure. The purchasing administrative assistant also helped place instrumentation under direct visualization of the surgeon. Postoperatively they assisted in the transfer of the patient off of the operative table and transition into the post anesthesia care unit with berry sition of care being made to the anesthesiologist. Vasyl Barrera MD SPINE SURGEON/ [facility] documented in this encounter Plan of Treatment [...] Displacement of lumbar intervertebral disc without myelopathy IA TOTAL DISC ARTHRP ANT SINGLE INTERSPACE LUMBAR 06/08/2023 6:50 AM CDT Displacement of lumbar intervertebral disc without myelopathy POCT GLU METER STAT 06/08/2023 5:52 AM CDT HCG URINE STAT 06/08/2023 5:42 AM CDT documented in this encounter Results * (ABNORMAL) CBC (Hgb,Hct,WBC,RBC,Platelet) (06/09/2023 7:30 AM CDT) WBC 10.4 4.3 - 10.8 K/uL 06/09/2023 8:07 AM CDT [facility] RBC 3.89(L) 4.20 - 5.40 M/uL 06/09/2023 8:07 AM T [facility] Hemoglobin 11.6(L) 12.0 - 16.0 gm/dL 06/09/2023 8:07 AM T [facility] Hematocrit 34.9(L) 36.0 - 48.0 % 06/09/2023 8:07 AM [facility] MCV 90 80 - 100 fL 06/09/2023 8:07 AM [facility] MCH 30 27 - 33 pg 06/09/2023 8:07 AM [facility] MCHC 33 33 - 36 gm/dL 06/09/2023 8:07 AM T [facility] RDW 12.2 11.5 - 14.5 % 06/09/2023 8:07 AM [facility] Platelet Count 266 150 - 400 K/UL 06/09/2023 8:07 AM [facility] MPV 9.9 6.5 - 12 fL 06/09/2023 8:07 AM [facility] Blood 06/09/2023 7:30 AM CDT 06/09/2023 7:50 AM CDT Nati Gallardo PA-C HEMATOLOGY ORDERA BLE [facility] [address] [place] [address] * (ABNORMAL) Basic Metabolic Profile Magnesium (06/09/2023 7:29 AM CDT) Sodium 142 136 - 145 mmol/L ATELLICA ANALYZER 06/09/2023 8:22 AM T [facility] Potassium 3.8 3.4 - 5.1 mmol/L ATELLICA ANALYZER 06/09/2023 8:22 AM [facility] Chloride 107 98 - 108 mmol/L ATELLICA ANALYZER 06/09/2023 8:22 AM [facility] Carbon Dioxide 29 20 - 31 mmol/L ATELLICA ANALYZER 06/09/2023 8:22 AM [facility] BUN (Urea Nitro) 8(L) 9 - 23 mg/dL ATELLICA ANALYZER 06/09/2023 8:22 AM [facility] Creatinine 0.59 0.55 - 1.02 mg/dL ATELLICA ANALYZER 06/09/2023 8:22 AM [facility] Est GFR (CKD-EPI) >60.00 >60.00 mL/min/1. 73m2 ATELLICA ANALYZER 06/09/2023 8:22 AM [facility] Comment:Calculation based on the Chronic Kidney Disease Epidemiology Collaboration (CKD-EPI) equation refit without adjustment for race. Glucose 103 74 - 106 mg/dL ATELLICA ANALYZER 06/09/2023 8:22 AM T [facility] Calcium, Serum 8.9 8.7 - 10.4 mg/dL ATELLICA ANALYZER 06/09/2023 8:22 AM [facility] Anion Gap 6.0 0.0 - 15.0 mmol/L ATELLICA ANALYZER 06/09/2023 8:22 AM [facility] Magnesium 1.9 1.6 - 2.6 mg/dL ATELLICA ANALYZER 06/09/2023 8:22 AM [facility] Blood 06/09/2023 7:29 AM CDT 06/09/2023 7:52 AM CDT Nati Gallardo PA-C CHEMISTRY ORDERAB LE Performing Organization Address City/[facility]/ZIP Co de Phone Number [facility] [address] [place] [address] * Extra Tube-Blood Bank (Lab Use Only) (06/08/2023 12:30 PM CDT) Blood 06/08/2023 12:3 0 PM CDT 06/08/2023 12:30 PM CDT Vasyl Barrera MD BLOOD BANK ORDERA BLE Performing Organization Address [facility] Co de Phone Number [facility] [address] [facility] [place] [address] * Hemoglobin (06/08/2023 12:09 PM CDT) Hemoglobin 12.8 12.0 - 16.0 gm/dL 06/08/2023 12:48 PM CDT [facility] Blood 06/08/2023 12:0 9 PM CDT 06/08/2023 12:16 PM CDT Marquez Rosenthal PA-C HEMATOLOGY ORDERABLE Performing Organization Address City/[facility] Co de Phone Number [facility] [address] [place] [address] [place] [address] * XR C-ARM SPINE (06/08/2023 9:33 AM [...] - 100 mg/dL 06/08/2023 6:10 AM CDT [facility] Blood 06/08/2023 5:52 AM CDT 06/08/2023 6:10 AM CDT Vasyl Barrera MD LAB POINT OF CARE TEST RESULTS Performing Organization Address City/[facility]/ZIP Co de Phone Number [facility] [address] [place] [address] * hCG Urine (06/08/2023 5:42 AM CDT) HCG URINE Negative Negative 06/08/2023 5:50 AM CDT [facility] Urine URINE SPECIMEN OBTAINED BY CLEAN CATCH PROCEDURE / Unknown 06/08/2023 5:42 AM CDT 06/08/2023 5:44 AM CDT Avelino Taylor DO URINE ORDERABLE [facility] [address] [place] [address] documented in this encounter Visit Diagnoses Diagnosis Lumbar radiculopathy- Primary Thoracic or lumbosacral neuritis or radiculitis, unspecified Displacement of lumbar intervertebral disc without myelopathy documented in this encounter Admitting Diagnoses Diagnosis Lumbar radiculopathy Thoracic or lumbosacral neuritis or radiculitis, unspecified documented in this encounter Administered Medications Inactive Administered Medications - up to 3 most recent administrations Medication Order MAR Action Action Date Dose Rate Site acetaminophen (TYLENOL) rectal suppository 650 mg 650 mg, Rectal, EVERY 6 HOURS (NS), First dose on Agueda 06/08/23 at 1400, Until Discontinued, Post-Op acetaminophen (TYLENOL) tablet 1,000 mg 1,000 mg, oral, EVERY 6 HOURS (NS), First dose on Agueda 06/08/23 at 1400, Until Discontinued, Post-Op Given 06/10/2023 7:43 AM CDT 1,000 mg Given 06/10/2023 2:38 AM CDT 1,000 mg Given 06/09/2023 7:41 PM CDT 1,000 mg docusate sodium (COLACE) capsule 100 mg 100 mg, oral, TWICE A DAY, First dose on Agueda 06/08/23 at 1145, Until Discontinued, Post-Op Given 06/10/2023 7:44 AM CDT 100 mg Given 06/09/2023 7:41 PM CDT 100 mg Given 06/09/2023 7:44 AM CDT 100 mg hydrALAZINE (APRESOLINE) injection 10 mg 10 mg, Intravenous, EVERY 6 HOURS NEEDED, Starting on Agueda 06/08/23 at 1235, Until 06/10/23 at 1808, for SBP GREATER THAN, >180 HYDROmorphone (DILAUDID) tablet 2-6 mg 2-6 mg, oral, EVERY 4 HOURS NEEDED, Starting on Mon06/09/23 at 2334, Until 06/10/23 at 1808, pain Given 06/10/2023 10:32 AM CDT 6 mg Given 06/10/2023 6:20 AM CDT 6 mg Given 06/10/2023 2:39 AM CDT 6 mg hydrOXYzine pamoate (Vistaril) capsule 50 mg 50 mg, oral, EVERY 3 HOURS NEEDED, Starting on Augeda 06/08/23 at 1130, Until 06/10/23 at 1808, [...] Given 06/09/2023 11:46 PM CDT 15 mg melatonin tablet 9 mg 9 mg, oral, [...] 06/10/23 at 1808, Post-Op, nausea & vomiting thrombin 5,000 unit topical solution INTRA-PROCEDURE NEEDED, Starting on Agueda 06/08/23 at 0935, Until Agueda 06/08/23 at 1004, Intra-Op Given 06/08/2023 9:35 AM CDT 2,500 Units Procedural documented in this encounter Active and Recently [...] on Mon06/08/23 at 1400, Until Discontinued, Post-Op 1459 (See Alternative - Provider: Roselia Yi RN)2027 (See Alternative - Provider: Storm Carlson RN) 021 (See Alternative - Provider: Dawn Nieves RN)0744 (See Alternative - Provider: Roselia Barber RN)144 (See Alternative - Provider: Roselia Braber RN)194 (See Alternative - Provider: Laura Sifuentes, ELENI) 023 (See Alternative - Provider: Diana Beasley, ELENI)0743 (See Alternative - Provider: Roselia Barber RN) acetaminophen (TYLENOL) tablet 1,000 mg (COMPLETED) 1,000 mg, oral, ONCE, 1 dose, On Mon06/08/23 at 0545, Pre-Op 0633 (Given - Provider: Micheline Hurd RN) acetaminophen (TYLENOL) tablet 1,000 mg(Linked Group 1) 1,000 mg, oral, EVERY 6 HOURS (NS), First dose on Mon06/08/23 at 1400, Until Discontinued, Post-Op 1459 (Given - Provider: Roselia Yi RN)2027 (Given - Provider: Storm Carlson RN) 216 (Given - Provider: Dawn Nieves RN)0744 (Given - Provider: Roselia Barber RN)144 (Given - Provider: Roselia Barber RN)194 (Given - Provider: Laura Sifuentes, ELENI) 023 (Given - Provider: Diana Beasley, ELENI)0743 [...] oral, TWICE A DAY, First dose on Mon06/08/23 at 1145, Until Discontinued, Post-Op 1147 (Given - Provider: Roselia Yi RN)2029 (Given - Provider: Storm Carlson RN) 0744 [...] dose on Mon06/09/23 at 2200, Until Discontinued 2228 (Given - Provider: Laura Sifuentes RN) methocarbamoL [...] 0545, Pre-Op 0634 (Given - Provider: Micheline Hurd, RN) Continuous Medication Order 06/08/2023 06/09/2023 06/10/2023 [...] Intravenous, EVERY 4 HOURS NEEDED, Starting on 06/09/23 at 2334, Until 06/10/23 at 0834, Post-Op, Pain, if oral opioid not effective or tolerated 2347 (Given - Provider: Diana Beasley RN) HYDROmorphone (DILAUDID) tablet 2-4 mg (CANCELED) 2-4 mg, oral, EVERY 4 HOURS NEEDED, Starting on Mon06/09/23 at 1540, Until 06/09/23 at 2334, pain 1828 (Given - Provider: Roselia Barber RN)2228 (Given - Provider: Laura Sifuentes RN) HYDROmorphone (DILAUDID) tablet 2-6 mg 2-6 mg, [...] RN)2228 (Given - Provider: Laura Sifuentes RN) 0239 (Given - Provider: Diana Beasley RN)0621 [...] Provider: Roselia Barber RN)1442 (Given - Provider: Roselai Barber RN) thrombin 5,000 unit topical solution (CANCELED) INTRA-PROCEDURE [...] vomiting documented in this encounter Care Teams Commercial Light Fixture Assembler Relationship Specialty Start Date End Date Yulisa Contreras PA-C [address] [place] [address] PCP - General Physician Supervisor Diagnostic 01/20/23 [facility] [address] [place] [address] PCP - Primary Care Clinic 05/29/23 documented as of this encounter
--- OUTSIDE RECORDS SUMMARY | 2023-09-13 18:06 | XMS_ITS | Encounter Summary ---
Author Name Unknown Organization [facility] Address [address] [place] [address] Care Team Providers Care Natural Sciences Professor Name Role Phone Yulisa Contreras PA-C Primary Care Provider + [phone] Yulisa Contreras PA-C Unavailable [phone] Reason for Referral * (Routine) - Open Specialty Diagnoses / Procedures Referred By Ezequiel amezquita Referred To Contact Diagnoses Lumbar spine pain Lumbar radiculopathy Vasyl Barrera MD [address] [address] Referral ID Status Reason Start Date Expiration Date Visits Re quested Visits Authorized [id number] Open 01/23/2023 1 1 Comments Location/Facility: [facility] Fax: [phone] Frequency: Twice a week for 6 weeks Reason for Therapy: Pre work up to lumbar Total disc replacement surgery Please fax results/reports to [facility] at [phone]. If you choose to mail reports, please send to the following address: [facility] [address] [place] [address], [address] [place] [address] Questions, call [phone] Reason for Visit * Reason Comments Consultation Consult - Lumbar Encounter Details Date Type Department Care Team (Latest Contact Info) Description 01/23/2023 11:40 AM CDT Office Visit [facility] (an affiliate of [facility]) [address] [place] [id number] Vasyl Barrera MD [address] [place] [address] Lumbar spine pain (Primary Dx); Lumbar radiculopathy Social History Tobacco Use Types Packs/Day Years Used Date Smoking Tobacco: Never Smokeless Tobacco: Never Tobacco Cessation:Counseling Given: Not Answered Sex and Gender Information Value Date Recorded Sex Assigned at Not on file Gender Identity Not on file Sexual Orientation Not on file COVID-19 Exposure Response Date Recorded In the last 10 days, have yo u been in contact with someone who was confirmed or suspected to have Coronavirus/COVID-19? No / Unsure 01/23/2023 11:16 AM CDT documented as of this encounter Last Filed Vital Signs Vital Sign Reading Time Taken Comments Blood Pressure - - Pulse - - Temperature - - Respiratory Rate - - Oxygen Saturation - - Inhaled Oxygen Concentration - - Weight 103 kg (227 lb) 01/23/2023 11:55 AM CDT Height 165.1 cm (5' 5) 01/23/2023 11:55 AM CDT Body Mass Index 37.77 01/23/2023 11:55 AM CDT documented in this encounter Progress Notes * Vasyl Barrera MD - 01/23/2023 11:40 AM CDT DATE OF SERVICE: 01/23/23 CHIEF COMPLAINT: Low back pain HPI: Carolina Garrido is a pleasant 47 y.o. female here today for evaluation for the above stated issues. During her previous visit with LUPIS Cheema on 01/20/23, the patient reported persistent LBP at the base of her spine. The L5- S1 discography recently completed caused sever pain. Patient had L3-4 and L4-5 discography done as well. Patient also reported posterior leg pain in the BLE. Today, the patient reports that she noted a severe increase in pain with the discogram. She underwent an epidural injection in the past which did not give her sustained relief. This was done with . She wants to pursue a more permanent treatment because her pain is affecting her everyday life. Her low back pain radiates into her bilateral hips and groin. The patient was seen because of facet arthropathy and sacroiliitis, noted on her lumbar MR Imaging scan. Her pain is rated at a 4/10 on the pain scale. REVIEW OF SYSTEMS: I have reviewed the last complete 10 point Review of Systems with the patient and any changes in findings are listed as part of today???s visit. All other systems are negative. The patient's Past Medical/Surgical/Family/Social history have been reviewed and verified with the patient. The patient???s current medications have been reviewed and verified with the patient. PHYSICAL EXAM: There were no vitals filed for this visit. GENERAL: No acute distress. HENT: Head normocephalic/atraumatic, hearing grossly intact bilaterally. EYES: Pupils equal, grossly EOMI, clear sclera. NECK: Supple, trachea is midline. RESPIRATORY: Breathing unlabored. BACK: No pain to palpation of lumbar spine. Range of Motion: Full range of motion with flexion, extension, rotation, and lateral bending at spine. Provacative Testing: Negative SLR. EXTREMITIES: Symmetrical bilaterally without deformity. NEUROLOGICAL: Patient ambulates without difficulty. 5/5 UE motor strength throughout, 5/5 LE motor strength throughout. Light touch sensation intact in bilateral UE/LE. No clonus. Neg Loco's. Alert and oriented, follows commands appropriately, speech clear. Coordination: Heel/toe/gait intact. Tandem gait intact. Reflexes: supinator, biceps, triceps, patellar, achilles 2+. VASCULAR: Extremities are warm bilaterally. INTEGUMENTARY: Shows good hydration and turgor. PSYCHIATRY: Patient has normal affect. IMAGING: The patient did have imaging prior to this appointment which I reviewed myself and discussed the findings with her. The impression is: MR Lumbar Spine -- 12/29/22 -- [facility] CONCLUSION: 1. L5-S1 advanced disc degeneration and minimal disc protrusion. 2. Mild degenerative changes more superiorly without stenosis or impingement. 3. Partially visualized bilateral sacroiliitis. ASSESSMENT: Severe disc collapse L5-S1 positive on discography Failed conservative management PLAN: 1. We discussed her current imaging and symptoms. After thorough review, I recommended a L5-S1 Total Disc Replacement. As a board certified orthopedic surgeon I do not feel that there is any role for further conservative management including physical therapy or other injections as there would be no expectation for those to give senior living benefit. 2. A very comprehensive discussion was done with this patient in discussing surgical intervention and the gravity of this type of intervention. A shared decision-making approach was utilized. 3. Patient was specifically instructed on pre-operative and scheduling protocol and was given the appropriate contact information for the health spa manager and the general information line. Risks andbenefits of surgical management were extensively discussed.We discussed the risks of the anterior procedure including but not limited to catastrophic vascular injury, injury to soft tissue structures, possibility of late strictures or ventral wall hernias, and the possibility of unsightly scarring.We discussed the possibility of and other catastrophic events. A plastic anatomic model was utilized for patient teaching. Risks were discussed with the patient including but not limited to catastrophic nerve root injury, cauda equina syndrome, misplaced hardware, bowel and bladder dysfunction, permanent pain syndromes, dysesthesias, paresthesias, infection, bleeding, swelling complications, hematoma, nonunion, and other potentially catastrophic complications including spinal fluid leakage and its associated problems. Patient understands that complications may require further surgical intervention either through anterior or posterior approach. A plastic anatomic model was utilized forpatient teaching. As far as general medical complications, we discussed the possibility of , heart attack, stroke, pneumonia, blood clots, pulmonary embolism, multiorgan failure, blindness, and o ther potentially catastrophic complications associated with surgical intervention. Patient understands that serious complications may occur and lead to extended hospital stays, rehospitalization, need for invasive medical or surgical procedures, critical illness, permanent disability or . She will follow up 2-4 weeks post-operatively. Surgical plan: L5-S1 Total Disc Replacement At the end of our visit, Carolina Garrido understands the current diagnosis and future treatment plan,and questions were answered satisfactorily. I also asked if there are any other questions or concerns otherwise, that she please call back to the office; understanding of this was expressed. SCRIBE ATTESTATION: By signing my name below, I, Madelyn Faria, attest that this documentation has been prepared under the direction and in the presence of Vasyl Barrera MD, 01/23/2023, 12:27 PM. PHYSICIAN ATTESTATION: IVasyl MD, personally performed the services described in this documentation. All medical record entries made by the scribe were at my direction and in my presence. I have reviewed thechart and agree that the record reflects my personal performance, is accurate, and complete. Vasyl Barrera MD SPINE SURGEON/ [facility] * Maury Griggs CMA - 01/23/2023 11:40 AM CDT Reason for visit - Consult lumbar per JOB PSA - [facility] patient Symptoms - Patient reports low back pain that radiates into her legs. Images/Location - MRI lumbar 12/29/22 ([facility]) 4VL 12/16/22 ([facility]) Changes in health history since last visit - none Current PT - none Current pain meds - none Pain Score - 4/10 Any major falls in the last year - no Did the fall(s) result in injury - no Is the patient at risk for falls - no Is a Disability or Workability Form needed - no Current RTW date - documented in this encounter Plan of Treatment Scheduled Referrals Name Type Priority Associated Diagnoses Orde r Schedule PHYSICAL THERAPY TREATMENT(S) Referral Routine Lumbar spine pain Lumbar radiculopathy Ordered: 01/23/2023 documented as of this encounter Visit Diagnoses Diagnosis Lumbar spine pain- Primary Lumbago Lumbar radiculopathy Thoracic or lumbosacral neuritis or radiculitis, unspecified documented in this encounter Care Teams Natural Sciences Professor Relationship Specialty Start Date End Date Yulisa Contreras PA-C [address] [place] [address] PCP - General Physician Hand Welt Butter 01/20/23 Yulisa Contreras PA-C [address] [place] [address] PCP - Primary Care Clinic Physician Hand Welt Butter 01/20/23 05/28/23 documented as of this encounter
--- OUTSIDE RECORDS SUMMARY | 2023-09-13 18:06 | XMS_ITS | Encounter Summary ---
Author Name Unknown Organization [facility] Address [address] [place] [address] Care Team Providers Care Poolroom/Poolhall Manager Name Role Phone Yulisa Contreras PA-C Primary Care Provider [facility]- Unav ailable Encounter Details Date Type Department Care Team (Latest Contact Info) Description 06/06/2023 Travel Social History Tobacco Use Types Packs/Day [...] on filedocumented in this encounter Care Teams Poolroom/Poolhall Manager Relationship Specialty Start Date End Date Yulisa Contreras PA-C [address] [place] [address] PCP - General Physician Rotary Adjuster 01/20/23 [facility]- [address] [place] [address] PCP - Primary Care Clinic 05/29/23 documented as of this encounter
--- OUTSIDE RECORDS SUMMARY | 2023-09-13 18:06 | XMS_ITS | Encounter Summary ---
Author Name Unknown Organization [facility] Address [address] [place] [address] Care Team Providers Care Electric Track Switch Maintainer Name Role Phone Yulisa Contreras PA-C Primary Care Provider + [phone] Yulisa Contreras PA-C Unavailable [phone] Encounter Details Date Type Department Care Team (Latest Contact Info) Description 01/23/2023 Travel Social History Tobacco Use Types Packs/Day [...] AM CDT documented as of this encounter Plan of Treatment Not on file documented as of this encounter Visit Diagnoses Not on filedocumented in this encounter Care Teams Electric Track Switch Maintainer Relationship Specialty Start Date End Date Yulisa Contreras PA-C [address] [place] [address] PCP - General Physician Receptionist Secretary 01/20/23 Yulisa Contreras PA-C [address] [place] [address] PCP - Primary Care Clinic Physician Receptionist Secretary 01/20/23 05/28/23 documented as of this encounter
--- OUTSIDE RECORDS SUMMARY | 2023-09-13 18:06 | XMS_ITS | Continuity of Care Document ---
Author Name Unknown Organization [facility] Address [address] [address] [place] [address] Phone Care Team Providers Care Computer Service Technician Name Role Phone Demetria Quintanilla CRNA Unavailable [...] Diagnoses Date Provider Providers Copied on Encounter [facility] [place], [address] [address], [place], [place], [id number], [place] tel:[phone] [facility] No Information 2 Socorro Augustin . [address], [place], [place], [id number] , [place]. tel:[phone] Referring Provider: Iris Oliver MD, [address], [place], [address]. tel:[phone] [facility] [place], [address] [address], [place], [place], [id number], [place] tel:[phone] [facility] GI Symptoms or Concerns (chief complaint) Screening ColonoscopyColorect al polypsRectal polypEncounter for screening for malignant neoplasm of colon 2 Melody Simmons. [address], [place], [address], [place]. [phone] Referring Provider: Referral Self, USE FOR SELF REFERRALS. [facility] [place], [address] [address], [place], [id number], [place] tel:[phone] [facility] No Information 2 Melody Simmons. 1980 [facility] [address], [place], [address], [place]. [phone] Family History Family Member Type Diagnosis Age At Onset Mother Problem (finding) Cancer, kidney Mother Problem (finding) Cancer, gastric Mother Problem (finding) Alcoholism Father Problem (finding) Colon polyps Immunizations Vaccine Date Status Comments tetanus toxoid, reduced diphtheria toxoid, and acellular pertussis vaccine, adsorbed administered Note: [facility] bi-direct ional interface ; Source: Other Registry Payers Payer name Insurance type Covered libertarian ID Authoriza tion(s) [id number] Social History Type Description Quantity Date Captured [...]
--- OUTSIDE RECORDS SUMMARY | 2023-09-13 18:06 | XMS_ITS | Clinical Summary ---
Author Name Unknown Organization [facility] Address [place], [place] [address] Care Team Providers Care Strike Planning Applications Name Role Phone Yulisa Contreras PA-C Primary Care Provider + [phone] Allergies No known active allergies Medications Medication Sig Dispensed Refills Start Date End Date Status Magnesium 30 mg tablet Take by mouth. 0 12/08/2021 Active ergocalciferol (VITAMIN D2; DRISDOL) 50,000 unit capsule Take 1 Capsule (50,000 units) by mouth. 0 12/08/2021 Active Jdgll-3-ZFP-EPA-Fish Oil (Fish Oil) 1,000 mg (120 mg-180 mg) cap Take by mouth. 0 12/08/2021 Active zinc 50 mg tablet Take 1 Tablet (50 mg) by mouth once daily. 0 12/08/2021 Active hydroCHLOROthiazide 12.5 mg tablet TAKE 1 TABLET (12.5 MG) BY MOUTH DAILY 0 11/26/2021 Active losartan (COZAAR) 50 mg tablet 0 08/04/2022 Active valACYclovir (VALTREX) 1 gram tablet TAKE 2 TABLETS TWICE A DAY FOR 1 DAY AT FIRST SIGN OF ONSET 0 10/20/2022 Active lisinopriL (PRINIVIL; ZESTRIL) 10 mg tablet TAKE 1 TABLET BY MOUTH EVERY DAY FOR HIGH BLOOD PRESSURE 0 10/19/2022 Active Encounters Date Type Department Care Team Description 07/03/2023 Lab Requisition [facility] [phone] Sonia Mcghee MD from Last 3 Months Immunizations Name Administration Dates Next Due Tdap 03/21/2019 Family History Medical History Relation Name Comments Hypertension Brother Obesity Brother COPD Father Heart Disease Father Hypertension Father Obesity Father COPD Mother Heart Disease Mother Hypertension Mother Obesity Mother Relation Name Status Comments Brother Father Mother Social History Tobacco Use Types Packs/Day Years Used Date Smoking Tobacco: Former Smokeless Tobacco: Never Social Connections Answer Date Recorded Frequency of Communication with Friends and Fami ly Not on file 01/05/2022 Sex and Gender Information Value Date Recorded Sex Assigned at Not on file Gender Identity Not on file Sexual Orientation Not on file Obstetrics History Last Filed Vital Signs Vital Sign Reading Time Taken Comments Blood Pressure 121/63 08/13/2012 11:30 PM BONE TENDER Pulse 87 08/13/2012 11:30 PM BONE TENDER Temperature 36.8 ??C (98.2 ??F) 02/10/2022 10:26 AM C DT Respiratory Rate 16 08/13/2012 9:33 PM BONE TENDER Oxygen Saturation 99% 08/13/2012 11:30 PM BONE TENDER Inhaled Oxygen Concentration - - Weight 103 kg (227 lb) 01/20/2023 11:13 AM CDT Height 165.1 cm (5' 5) 01/20/2023 11:13 AM CDT Body Mass Index 37.77 01/20/2023 11:13 AM CDT Plan of Treatment Health Maintenance Due Date Last Done Comments COVID-19 vaccine series (#1) 1977 Depression screening for age 12+ 1989 HIV for age 15-65 02/10/1992 Hepatitis C screening for age 18-79 1995 Pap test for age 21-65 1998 Colonoscopy through age 75 2022 Lipids for age 45-75 2022 Mammogram for age 45-75 2022 Influenza for age 9-49 05/05/2023 BMI (ht and wt on same day) for age 18+ 01/21/2024 01/20/2023, 01/03/2023, 02/10/2022, Additional history exists Tetanus booster 03/21/2029 03/21/2019 Tdap Completed 03/21/2019 Pneumococcal series for age 6-64 Aged Out No longer eligible based on patient's age to complete this topic Procedures Procedure Name Priority Date/Time Associated Diagnosis Comments LAB TRACKING EVENT Routine 07/03/2023 9: 52 AM CDT PATH BREAST CORE BIOPSY Routine 07/03/2023 9:52 AM CDT from Last 3 Months Results * LAB TRACKING EVENT (07/03/2023 9:52 AM CDT) Other (Other) Client Collect / Unknown 07/03/2023 9:52 AM CDT 07/03/2023 9:52 PM CDT Sonia Mcghee MD LAB BILL ONLY [facility] LABORATORY-CENTRAL LABORATORY [address] [place] [address], * PATH BREAST CORE BIOPSY (07/03/2023 9:52 AM CDT) Case Report Pathology Report ?Case: [id number] ? Authorizing Provider: ??Sonia Mcghee MD ? Collected: ? 07/03/2023 0952 ? Ordering Location: ? [facility] ?Received: ?07/04/2023 0737 ? Pathologist: ? Susan Abbott MD ? Specimen: ?Right Breast Core Stereotactic Biopsy ? 07/04/2023 3:00 PM CDT [facility] LABORATORY-C ENTRAL LABORATORY Final Diagnosis A) RIGHT BREAST, UPPER, 9 CM FROM NIPPLE, STEREOTACTIC-GUID ED CORE BIOPSY: 1. Proliferative fibrocystic change 2. Calcifications: Present 3. Negative for atypia and malignancy 07/04/2023 3:00 PM T [facility]- ENTRAL LABORATORY Comment A) This is an image-guided breast biopsy. The pathologic findings should be correlated with radiologic and clinical findings prior to treatment decisions. Case seen in consultation with Dr. Ramos. 07/04/2023 3:00 PM T [facility] Clinical Information LESION DESCRIPTION: Amorphous, diffuse calcifications SIZE: 3.5 cm LOCATION: Right upper breast, 9 cm from nipple CLIP SHAPE: Butterfly 07/04/2023 3:00 PM T [facility] EN[facility] LABORATORY Gross Description A) Label: Patient's name and right Description: Fibrofatty core biopsies Size: 2.0 x 1.9 x 0.4 cm (aggregate) Ink color: Black The specimen is submitted in toto in 2 cassette(s). Cold ischemic time: Less than 60 minutes, meets current ASCO/CAP guidelines. ?? The specimen was fixed in formalin for a minimum of 6 hours and not longer than 72 hours. TRS 07/04/2023 07/04/2023 3:00 PM T [facility] Microscopic Description The final diagnosis is based on microscopic examination of appropriate sections of all specimens. A) The presence of black ink is confirmed on tissue sections. The specimen radiograph is reviewed by the pathologist as part of the evaluation of this case, to confirm that the calcifications seen on the specimen radiograph correlate (in size and number) with the microscopic findings, and to determine whether or not additional levels are necessary. 07/04/2023 3:00 PM T [facility] Additional Information Interpreted at [facility], Central Laboratory - [address] [address] 07/04/2023 3:00 PM T [facility] Other (Right Breast Core Stereotactic Biopsy) 07/03/2023 9:52 AM CDT 07/04/2023 7:37 AM CDT Sonia Mcghee MD PATHOLOGY/CYTOLOGY [facility] LABORATORY-CENTRAL LABORATORY [address] [place] [address], from Last 3 Months Care Teams Strike Planning Applications Relationship Specialty Start Date End Date Yulisa Contreras PA-C [address] [place] [address] PCP - General Emergency Medicine 11/19/21
--- OUTSIDE RECORDS SUMMARY | 2023-09-13 18:06 | XMS_ITS | Clinical Summary ---
Author Name Unknown Organization [facility] Address [address], [place] [address] Care Team Providers Care Guest Service Manager Name Role Phone Parisa John APRN, CNP Primary Care Provider Source Comments You are receiving this document as you are listed as the primary care provider,follow-up provider, or the patient has been referred to you for consultation.This is in compliance with the Medicare and[facility] E[facility] Incentive Program,which states Providers who transition their patient to another setting of careor provider of care or refers their patient to another provider of care shouldprovide summary care record for each transition of care or referral. [facility] Allergies No known active allergies Medications Medication Sig Dispensed Refills Start Date End Date Status metFORMIN XR (GLUCOPHAGE XR) 750 MG 24 hour release tablet TAKE 3 TABLETS BY ORAL ROUTE ONCE DAILY WITH THE EVENING MEAL FOR 90 DAYS 3 09/29/2016 Active Multiple Vitamin (MULTIVITAMINS OR) 0 Active Active Problems No known active problems Social History Tobacco Use Types Packs/Day Years Used Date Smoking Tobacco: Never Sex and Gender Information Value Date Recorded Sex Assigned at Not on file Gender Identity Not on file Sexual Orientation Not on file Last Filed Vital Signs Vital Sign Reading Time Taken Comments Blood Pressure - - Pulse - - Temperature - - Respiratory Rate - - Oxygen Saturation - - Inhaled Oxygen Concentration - - Weight 95.3 kg (210 lb) 11/29/2016 9:58 AM CDT Height 165.1 cm (5' 5) 11/29/2016 9:58 AM CDT Body Mass Index 34.95 11/29/2016 9:58 AM CDT Plan of Treatment Health Maintenance Due Date Last Done Comments Cervical Cancer Screening Due 1977 Colon Cancer Screening Plan Due 1977 Hep C Screening (Preventive Services) 1977 HepB (1) 1977 COVID-19 Vaccine (#1) 1977 HIV Screening (Preventive Services) 1993 Adult Preventive Visit 1995 DTaP/Tdap/Td (1 - Tdap) 02/10/1996 Cholesterol 2022 Influenza (#1) 2023 Zoster/Shingles (1 of 2) 2027 HepA Aged Out No longer eligi ble based on patient's age to complete this topic Hib Aged Out No longer eligi ble based on patient's age to complete this topic IPV (Polio) Aged Out No longer eligi ble based on patient's age to complete this topic MCV4 Aged Out No longer eligi ble based on patient's age to complete this topic Pneumococcal Aged Out No longer eligi ble based on patient's age to complete this topic Care Teams Guest Service Manager Relationship Specialty Start Date End Date Parisa John, MILK [employer] L[employer] SLAKER, EARLY CHILDHOOD [address] [place] [address] PCP - General Nurse Practitioner 11/25/16
--- OUTSIDE RECORDS SUMMARY | 2023-09-13 18:06 | XMS_ITS | Referral Summary ---
Author Name Unknown Organization [facility] Address [address] [place] [id number] Care Team Providers Care Neon Electrician Name Role Phone Alvaro Parisa Stout Primary Care Provider [phone] Allergies No known active allergies Medications No known medications Active Problems Problem Noted Date Diagnosed Date Basal cell carcinoma, eyelid, right 07/22/2021 Overview: Added automatically from request for surgery [id number] (spontaneous vaginal delivery) 09/27/2011 Social History Tobacco Use Types Packs/Day Years Used Date Smoking Tobacco: Former Smokeless Tobacco: Never Tobacco Cessation:Counseling Given: No Alcohol Use Standard Drinks/Week Comments Yes 3 (1 standard drink = 0.6 oz pur e alcohol) PHQ-2 Answer Date Recorded PHQ-2 Score 0 08/19/2021 Adolescent Education Answer Date Record ed Getting School Help Needed Not on file 06/11 Sex and Gender Information Value Date Recorded Sex Assigned at Not on file Gender Identity Not on file Sexual Orientation Not on file Last Filed Vital Signs Vital Sign Reading Time Taken Comments Blood Pressure 119/81 08/26/2021 2:00 PM DIRECTOR DRUG Pulse 70 08/26/2021 2:00 PM DIRECTOR DRUG Temperature 36.4 ??C (97.5 ??F) 08/26/2021 1:46 PM CS T Respiratory Rate 14 08/26/2021 2:00 PM DIRECTOR DRUG Oxygen Saturation 96% 08/26/2021 2:00 PM DIRECTOR DRUG Inhaled Oxygen Concentration - - Weight 108.9 kg (240 lb) 08/26/2021 11:24 AM DIRECTOR DRUG Height 165.1 cm (5' 5) 08/26/2021 11:24 AM DIRECTOR DRUG Body Mass Index 39.94 08/26/2021 11:24 AM DIRECTOR DRUG Plan of Treatment Not on file Medical Devices Implanted Type Area Chronic Disease Epidemiologist Device Identifier Shelf Expiration Date Model / Serial / Lot Mesh Sling Advantage Fit System [id number] Implanted:Qty: 1 on 06/07/2018 by Carolina Altman MD at [facility] Mesh N/A: Vagina [employer] 01/23/2021 [id number] / / [id number] Care Teams Neon Electrician Relationship Specialty Start Date End Date Parisa John [facility] [address] [place] [address] PCP - General Nurse Practitioner 12/22/17
--- OUTSIDE RECORDS SUMMARY | 2023-09-13 18:06 | XMS_ITS | Clinical Summary ---
Author Name Unknown Organization [facility] Address Formerly [facility] [place] [address] Care Team Providers Care Electronics Computer Mechanic Name Role Phone Alvaro Parisa Stout Primary Care Provider [phone] Allergies No known active allergies Medications No known medications Active Problems Problem Noted Date Diagnosed Date Basal cell carcinoma, eyelid, right 07/22/2021 Overview: Added automatically from request for surgery [id number] (spontaneous vaginal delivery) 09/27/2011 Family History Medical History Relation Comments Hypertension Brother Cerebrovascular Disease Father Hypertension Father Cancer Maternal Grandmother Cerebrovascular Disease Mother Hypertension Mother Relation Status Comments Brother Father Maternal Grandmother Mother Social History Tobacco Use Types Packs/Day [...] Comments Blood Pressure 119/81 08/26/2021 2:00 PM SEARCH MARKETING COORDINATOR Pulse 70 08/26/2021 2:00 PM SEARCH MARKETING COORDINATOR Temperature 36.4 ??C (97.5 ??F) 08/26/2021 1:46 PM CS T Respiratory Rate 14 08/26/2021 2:00 PM SEARCH MARKETING COORDINATOR Oxygen Saturation 96% 08/26/2021 2:00 PM SEARCH MARKETING COORDINATOR Inhaled Oxygen Concentration - - Weight 108.9 kg (240 lb) 08/26/2021 11:24 AM SEARCH MARKETING COORDINATOR Height 165.1 cm (5' 5) 08/26/2021 11:24 AM SEARCH MARKETING COORDINATOR Body Mass Index 39.94 08/26/2021 11:24 AM SEARCH MARKETING COORDINATOR Plan of Treatment Health Maintenance Due Date Last Done Comments ADVANCE CARE PLANNING 1977 ANNUAL REVIEW OF HM ORDERS 1977 CT COLONOGRAPHY 1977 FIT 1977 FLEX SIG 1977 HEPATITIS B IMMUNIZATION (1 of 3 - 3-dose series) 1977 sDNA (Cologuard) 1977 COVID-19 Vaccine (#1) 1977 COLONOSCOPY 1987 COLORECTAL CANCER SCREENING 1987 HEPATITIS C SCREENING 1995 YEARLY PREVENTIVE VISIT 02/19/2021 02/20/2020 MAMMO SCREENING 02/26/2021 02/27/2020 LIPID 2022 PHQ-2 (once per calendar year) 2022 08/19/2021 PAP 02/19/2023 02/20/2020, 02/20/2020 INFLUENZA VACCINE (#1) 2023 DTAP/TDAP/TD IMMUNIZATION (2 - Td or Tdap) 03/21/2029 03/21/2019 HIV SCREENING Completed 02/14/2011 HPV IMMUNIZATION Aged Out No longer e ligible based on patient's age to complete this topic IPV IMMUNIZATION Aged Out No longer e ligible based on patient's age to complete this topic MENINGITIS IMMUNIZATION Aged Out No l onger eligible based on patient's age to complete this topic Pneumococcal Vaccine: Pediatrics (0 to 5 Years) and At-Risk Patients (6 to 64 Years) Aged Out No longer eligible b ased on patient's age to complete this topic RSV MONOCLONAL ANTIBODY Aged Out No l onger eligible based on patient's age to complete this topic Medical Devices Implanted Type Area Tool Setter Device Identifier Shelf Expiration Date Model / Serial / Lot Mesh Sling Advantage Fit System [id number] Implanted:Qty: 1 on 06/07/2018 by Carolina Altman MD at [facility] Mesh N/A: Vagina [employer] 01/23/2021 [id number] / / [id number] Care Teams Electronics Computer Mechanic Relationship Specialty Start Date End Date Parisa John [facility] [address] [place] [address] PCP - General Nurse Practitioner 12/22/17
== END 2023-09-07 08:12 | disposition home or self-care (01) ==
LOC: NFLDREF 09-13 18:03
PROVIDERS: PCP Physician Assistant Medical; Referring Provider Physician Assistant Medical; Visit Provider Physician Assistant Medical
DX: I10 Essential (primary) hypertension (principal)
CPT/HCPCS: 80053; 84443; 87086

== ENCOUNTER 2024-10-10 12:37 | Outpatient (CLI) | payer BC, SELFPAY | END 2024-10-10 12:38 | disposition home or self-care (01) | LOC: NFLDREF 10-16 01:11 | PROVIDERS: PCP Physician Assistant Medical; Referring Provider Physician Assistant Medical; Visit Provider Physician Assistant Medical | DX: I10 Essential (primary) hypertension (principal); E66.9 Obesity, unspecified; G47.30 Sleep apnea, unspecified; Z13.6 Encounter for screening for cardiovascular disorders | CPT/HCPCS: 80053; 80061; 84443 ==